=== PATIENT | female | born 1970 | race Caucasian/White ===

== ENCOUNTER 2017-06-11 10:48 | Emergency (ER) | payer MEDICAID, OTHER ==
[2017-06-11] MEDS ORDERED: HYDROmorphone INJ* 1 MG/ML CARPUJECT SYRINGE IV SLOW PU ONE (12:20)
[2017-06-11] MEDS ORDERED: Ondansetron INJ* 2 MG/ML VIAL IV ONE (12:20)
[2017-06-11] MEDS ORDERED: NS 0.9% 1000 ML* 1,000 ML IV ONE (12:20)
[2017-06-11] MEDS ORDERED: LORazepam INJ* 2 MG/ML 1 ML VIAL IV PUSH ONE (12:21)
[2017-06-11 13:06] LABS: Hematocrit 34 % (35-47); Hemoglobin 10.2 g/dl (12.0-16.0); Mean Corpuscular HGB Conc 31 g/dl (31-36); Mean Corpuscular Hemoglobin 21 pg (27-31); Mean Corpuscular Volume 67 fL (80-97); Mean Platelet Volume 10 um3 (7.4-10.4); Red Cell Distribution Width 20 % (10.5-15)
[2017-06-11 13:07] LABS: Add Diff/Slide Review? Slide Review Added; Comments Flag Yes
[2017-06-11 13:12] LABS: Urine Bacteria Absent (Absent); Urine Bilirubin Negative (Negative); Urine Glucose 2+(150 mg/dL) (Negative); Urine Nitrite Negative (Negative)
[2017-06-11 13:21] LABS: Albumin 4.2 g/dL (3.2-5.2); BUN/Creatinine Ratio 16.1 (8-20); Calcium 9.8 mg/dL (8.6-10.3); EGFR African American 89.8 (>60); EGFR Non-African American 69.8 (>60); Globulin 3.5 g/dL (2-4); Total Bilirubin 0.3 mg/dL (0.2-1.0); Total Protein 7.7 g/dL (6.4-8.9)
[2017-06-11 13:22] LABS: Potassium 5.1 mmol/L (3.5-5.0)
[2017-06-11 13:23] LABS: Add Path Review? YES; Microcytosis 2+
[2017-06-11] MEDS ORDERED: Iodixanol* (CONTRAST) 320 MG/ML 100 ML SDV IV ONE (13:27)
[2017-06-11] MEDS ORDERED: HYDROmorphone INJ* 2 MG/ML CARPUJECT SYRINGE IV ONE (14:00)
--- NOTE | 2017-06-11 14:29 | RAD ---
INDICATION: Tenderness at the RIGHT upper quadrant and RIGHT lower ribs and L3-L5 region post fall. COMPARISON: September 09, 2015 CT of the thoracic and lumbar spine. March 20, 2015 RIGHT upper quadrant ultrasound. TECHNIQUE: Multidetector CT images were obtained from the lung apices to the ischial tuberosities with 100 mL Visipaque 320 IV contrast. No oral contrast administered. Dedicated bone algorithm multiplanar reformatted images of the lumbar sacral spine. CHEST REPORT: Minimal LEFT greater than RIGHT basilar dependent subsegmental atelectasis. Negative for pleural effusion or pneumothorax. Negative for thoracic lymphadenopathy, cardiomegaly, pericardial effusion. Unremarkable normal diameter thoracic aorta. Negative for rib, thoracic spine, sternal, or visualized shoulder girdle fracture. Negative for soft tissue hematoma. CHEST IMPRESSION: No evidence for traumatic thoracic injury. ABDOMEN PELVIS REPORT: The liver, gallbladder, pancreas, and spleen are unremarkable. Negative for CT abnormality of the upper GI, small bowel, infra cecal appendix, or colon. Negative for ascites, free air, hernias. Normal adrenal glands. Unremarkable kidneys with symmetric pyelograms and nephrograms. Unremarkable nondilated ureters and largely decompressed urinary bladder limiting assessment. Anteverted uterus with 3.1 cm RIGHT uterine body fibroid. Unremarkable adnexal regions. Negative for lymphadenopathy. Negative for aneurysm of the abdominal aorta. Physiologic distention of the IVC. Negative for fracture of the lumbar sacral spine, pelvis, or visualized proximal femurs. Multilevel mild vertebral endplate osteophytosis at the lumbar sacral spine without significant disc space narrowing. Suggestion of minimal annular disc bulges at L2-L3, L3-L4, L4-L5, and L5-S1. No significant acquired central canal stenosis evident at any level. At L5-S1 on the LEFT degenerative spondylosis results in mild foraminal stenosis without change. Negative for soft tissue hematoma. ABDOMEN PELVIS IMPRESSION: 1. No abdominal pelvic visceral injury evident. 2. No lumbar sacral spine, pelvis, or visualized proximal femur fracture. 3. Negative for soft tissue hematoma.
--- NOTE | 2017-06-11 15:26 | ED ---
Renan Ibarra Abhishek, scribed for Bee Aguilar MD on 06/11/17 at 1203 . Back Pain - HPI Summary HPI Summary: This patient is a 47 year old F presenting to [facility] accompanied by back pain s/p fall with a chief complaint of back pain since 909. Pt states slipped on 3rd concrete step, landing on buttocks. Pt states lower back felt like a pop. The CC is described as mid back pain, radiating around right side and intermittent, sharp, piercing pain. The patient rates the pain 10/10 in severity. Symptoms aggravated by inspiration and movement. Symptoms alleviated by nothing. Pt states lower back felt like a pop. Patient reports right abd pain. Patient denies neck pain. - History of Current Complaint Chief Complaint: EDBackInjuryPain Stated Complaint: FALL Time Seen by Provider: 06/11/17 11:30 Hx Obtained From: Patient Onset/Duration: Sudden Onset - s/p fall, Still Present Onset/Duration: Started Hours Ago - 909 Timing: Constant, Lasting Hours - since 3 hr ago Back Pain Location: Radiates To - right side Severity Initially: Severe Severity Currently: Severe Pain Intensity: 10 Pain Scale Used: 0-10 Numeric Character: Sharp Aggravating Symptom(s): Movement, Other - inspiration Alleviating Symptom(s): Nothing Associated Signs And Symptoms: Positive: Abdominal Pain - right side pain - Allergies/Home Medications Allergies/Adverse Reactions: Allergies Allergy/AdvReac Type Severity Reaction Status Date / Time No Known Allergies Allergy Verified 09/09/15 19:58 PMH/Surg Hx/FS Hx/Imm Hx Endocrine/Hematology History: Reports: Hx Diabetes Cardiovascular History: Reports: Hx Hypertension Denies: Hx Pacemaker/ICD Respiratory History: Denies: Hx Asthma History: Denies: Hx Dialysis, Hx Renal Disease Sensory History: Denies: Hx Hearing Aid Psychiatric History: Denies: Hx Panic Disorder - Surgical History Surgery Procedure, Year, and Place: RT FOREARM FX 2006. RT CARPAL TUNNEL Infectious Disease History: Yes Infectious Disease History: Denies: Traveled Outside the [place] in Last 30 Days - Family History Known Family History: Positive: Other - CVA (mother's side) - Social History Lives: With Family Alcohol Use: Occasionally Substance Use Type: Reports: None Smoking Status (MU): Light Every Day Tobacco Smoker Review of Systems Constitutional: Negative Eyes: Negative ENT: Negative Cardiovascular: Negative Respiratory: Negative Positive: Abdominal Pain - right side Genitourinary: Negative Positive: Other - mid back pain radiating around right side (intermittent and sharp) Skin: Negative Neurological: Negative Psychological: Normal All Other Systems Reviewed And Are Negative: Yes Physical Exam - Summary Physical Exam Summary: General: Well appearing, no pain distress Skin: Warm, Skin Color Reflects Adequate Perfusion, Dry Eyes: EOMI, MARILYN ENT: Pharynx normal, TMs normal Neck: Supple, nontender Respiratory: CTA, breath sounds present, no rhonchi, no wheezes, no rales Cardiovascular: RRR, no murmur, no rub, no gallop Abdomen: Soft, nontender, Non-distended, no guarding, no rebound Bowel: Present Musculoskeletal: JHONY, Tender in the L3/L4 Mid axillary tenderness through ribs 10-12 Great toe dorsal flection Great hip flection Neuro: Sensory/motor intact, A&Ox3, CN intact 2-12 Psych: Affect/mood appropriate Triage Information Reviewed: Yes Vital Signs On Initial Exam: Initial Vitals Temp Pulse Resp BP Pulse Ox 98.1 F 74 19 129/67 97 06/11/17 10:54 06/11/17 10:54 06/11/17 10:54 06/11/17 10:54 06/11/17 10:54 Vital Signs Reviewed: Yes - Valente Coma Scale Coma Scale Total: 15 Diagnostics - Vital Signs Vital Signs Temp Pulse Resp BP Pulse Ox 06/11/17 11:00 76 119/75 98 06/11/17 10:55 79 98 06/11/17 10:54 98.1 F 74 19 129/67 97 - Laboratory Lab Results: Lab Results 06/11/17 06/11/17 06/11/17 Range/Units 12:50 12:50 12:50 WBC 10.0 (3.5-10.8) 10^3/ul RBC 5.00 (4.0-5.4) 10^6/ul Hgb 10.2 L (12.0-16.0) g/dl Hct 34 L (35-47) % MCV 67 L (80-97) fL MCH 21 L (27-31) pg MCHC 31 (31-36) g/dl RDW 20 H (10.5-15) % Plt Count 207 (150-450) 10^3/ul MPV 10 (7.4-10.4) um3 Neut % (Auto) 60.8 (38-83) % Lymph % (Auto) 24.4 L (25-47) % [place] % (Auto) 5.1 (1-9) % Eos % (Auto) 8.8 H (0-6) % Baso % (Auto) 0.9 (0-2) % Absolute Neuts (auto) 6.1 (1.5-7.7) 10^3/ul Absolute Lymphs (auto) 2.4 (1.0-4.8) 10^3/ul Absolute Monos (auto) 0.5 (0-0.8) 10^3/ul Absolute Eos (auto) 0.9 H (0-0.6) 10^3/ul Absolute Basos (auto) 0.1 (0-0.2) 10^3/ul Absolute Nucleated RBC 0 10^3/ul Nucleated RBC % 0 Normal RBC Morphology Not Reportable Microcytosis 2+ Hem Pathologist Commnt Pending Sodium 134 (133-145) mmol/L Potassium 5.1 H (3.5-5.0) mmol/L Chloride 101 (101-111) mmol/L Carbon Dioxide 26 (22-32) mmol/L Anion Gap 7 (2-11) mmol/L BUN 14 (6-24) mg/dL Creatinine 0.87 (0.51-0.95) mg/dL Est GFR ( Amer) 89.8 (>60) Est GFR (Non-Af Amer) 69.8 (>60) BUN/Creatinine Ratio 16.1 (8-20) Glucose 257 H (70-100) mg/dL Calcium 9.8 (8.6-10.3) mg/dL Total Bilirubin 0.30 (0.2-1.0) mg/dL AST 9 L (13-39) U/L ALT 12 (7-52) U/L Alkaline Phosphatase 69 (34-104) U/L Total Protein 7.7 (6.4-8.9) g/dL Albumin 4.2 (3.2-5.2) g/dL Globulin 3.5 (2-4) g/dL Albumin/Globulin Ratio 1.2 (1-3) Urine Color Yellow Urine Appearance Cloudy Urine pH 5.0 (5-9) Ur Specific [place] 1.025 (1.010-1.030) Urine Protein 1+(30 mg/dl) H (Negative) Urine Ketones Negative (Negative) Urine Blood Negative (Negative) Urine Nitrate Negative (Negative) Urine Bilirubin Negative (Negative) Urine Urobilinogen Negative (Negative) Ur Leukocyte Esterase Negative (Negative) Urine WBC (Auto) Trace(0-5/hpf) (Absent) Urine RBC (Auto) Trace(0-2/hpf) (Absent) Ur Squamous Epith Cells Present H (Absent) Urine Bacteria Absent (Absent) Hyaline Casts Present H (Absent) Urine Glucose 2+(150 mg/dl) H (Negative) Result Diagrams: 06/11/17 12:50 06/11/17 12:50 Lab Statement: Any lab studies that have been ordered have been reviewed, and results considered in the medical decision making process. - CT Chest/abd/pelvis CT CT Interpretation Completed By: Radiologist - CT Chest reveals No evidence for traumatic thoracic injury. CT abd/pelvis reveals 1. No abdominal pelvic visceral injury evident. 2. No lumbar sacral spine, pelvis, or visualized proximal femur fracture. 3. Negative for soft tissue hematoma. CT spine CT Interpretation Completed By: Radiologist - CT Spine reveals No evidence for traumatic thoracic injury. CT abd/pelvis reveals 1. No abdominal pelvic visceral injury evident. 2. No lumbar sacral spine, pelvis, or visualized proximal femur fracture. 3. Negative for soft tissue hematoma. ED physician has reviewed this radiology report and agrees. Back Pain Course/Dx - Course Course Of Treatment: 47 yo female s/p fall with left paraspinal lumbar pain l3- l5 and right rib pain. ct's neg pts pain controlled here, she is neurovascularly correct - Diagnoses Provider Diagnoses: Rib pain, Lumbar strain Discharge - Discharge Plan Condition: Stable Disposition: HOME Prescriptions: Cyclobenzaprine TAB* [Flexeril 10 MG TAB*] 10 mg PO TID PRN #30 tab PRN Reason: Spasms oxyCODONE/Acetamin 5/325 MG* [Percocet 5/325 TAB*] 1 tab PO Q4H PRN #18 tab MDD 6 PRN Reason: Pain The documentation as recorded by the Renan abad Abhishek accurately reflects the service I personally performed and the decisions made by , Bee Aguilar MD.
[2017-06-11 15:37] VITALS: BP 108/52
== END 2017-06-11 15:38 | disposition home or self-care (01) ==
LOC: ED 10:48
DX: S39.012A Strain of muscle, fascia and tendon of lower back, initial encounter (principal); R07.81 Pleurodynia; W19.XXXA Unspecified fall, initial encounter; Y93.9 Activity, unspecified; Y92.9 Unspecified place or not applicable
CPT/HCPCS: 36415; 71260; 72131; 74177; 80053; 81003; 81015; 85025; 85060; 96374; 96375; 99282; J1170; J2060; J2405; Q9967

== ENCOUNTER 2017-08-18 18:43 | Emergency (ER) | payer MEDICAID ==
[2017-08-18] MEDS ORDERED: NS 0.9% 1000 ML* 1,000 ML IV ONE (20:04)
--- NOTE | 2017-08-18 20:32 | RAD ---
INDICATION: Syncope. COMPARISON: There are no prior studies available for comparison. TECHNIQUE: A portable view of the chest was obtained. FINDINGS: Cardiac and mediastinal contours appear to be within normal limits. The lungs are clear. No pleural effusion is seen. IMPRESSION: NO EVIDENCE FOR ACUTE DISEASE.
--- NOTE | 2017-08-18 20:46 | RAD ---
INDICATION: Syncope, headache on Coumadin. COMPARISON: Comparison is made with a prior CT of the brain from 2015. TECHNIQUE: Contiguous axial sections of the brain were obtained from the skull base to the vertex without contrast. FINDINGS: There are 2 areas of encephalomalacia. 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 No other focal abnormality or mass effect is seen. There is no evidence for hemorrhage. No significant focal osseous abnormality is seen. The visualized portion of the paranasal sinuses and mastoid air cells appear clear. IMPRESSION: 1. NO EVIDENCE FOR ACUTE INTRACRANIAL ABNORMALITY. 2. 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
[2017-08-18] MEDS ORDERED: levETIRAcetam TAB* 500 MG PO ONE (20:58)
[2017-08-18 21:12] LABS: INR 0.94 (0.77-1.02)
[2017-08-18 21:16] LABS: EGFR Non-African American 79.2 (>60)
[2017-08-18 21:31] LABS: Urine Appearance Cloudy; Urine Blood 3+ (Negative); Urine Color Yellow; Urine Ketones Negative (Negative); Urine Protein 1+(30 mg/dL) (Negative); Urine Specific Gravity 1.018 (1.010-1.030); Urine Urobilinogen Negative (Negative)
[2017-08-18] MEDS ORDERED: Magnesium Sulfate 2 GM IV* 2 GM/50 ML BAG IVPB ONE (21:42)
[2017-08-18] MEDS ORDERED: Sulfamethox/Trimethoprim DS 800/160* TAB PO ONE (21:43)
[2017-08-18 23:15] LABS: ABS Basophils 0 10^3/ul (0-0.2); ABS Eosinophils 0.1 10^3/ul (0-0.6); ABS Lymphocytes 1.7 10^3/ul (1.0-4.8); ABS Monocytes 0.4 10^3/ul (0-0.8); ABS Neutrophils 4.8 10^3/ul (1.5-7.7); ABS Nucleated RBC 0 10^3/ul; Eosinophil % 1.5 % (0-6); Hematocrit 32 % (35-47); Hemoglobin 9.9 g/dl (12.0-16.0); Lymphocyte % 24.4 % (25-47); Mean Corpuscular HGB Conc 31 g/dl (31-36); Mean Corpuscular Hemoglobin 21 pg (27-31); Mean Platelet Volume 10 um3 (7.4-10.4); Nucleated Red Blood Cells % 0; Platelet Count 186 10^3/ul (150-450); Red Blood Count 4.73 10^6/ul (4.0-5.4); Red Cell Distribution Width 20 % (10.5-15); White Blood Count 7.1 10^3/ul (3.5-10.8)
[2017-08-18 23:17] LABS: Mean Corpuscular Volume 68 fL (80-97)
[2017-08-19 00:08] VITALS: BP 123/60
--- NOTE | 2017-08-19 00:14 | ED ---
Debbie Ibarra Gabriel scribmariana for Wayne Frank on 08/18/17 at 2004 . Syncope/Near Syncope - HPI Summary HPI Summary: This patient is a 47 year old F BIBA to [facility] accompanied by her family with a chief complaint of a syncopal episode that occurred [employer]. The patient rates the pain 10/10 in severity. Symptoms alleviated by spontaneous resolution. Patient reports HUGO and neck pain. Patients family denies mouth frothing. Patients family reports that she was sitting and talking to them when she had a LOC in which she did not close her eyes. She feel and hit her the posterior aspect of her head, was unconscious for 2 minutes, and awoke confused. They also took her BP after and it was elevated. Patient has a history of seizures and a blood clot in her neck. She states that she has been taking her medication as directed. - History Of Current Complaint Chief Complaint: EDDiabeticProb Time Seen by Provider: 08/18/17 19:49 Hx Obtained From: Patient, Family/Supervisor [employer] Onset/Duration: Sudden Onset, Resolved Timing: Intermittent Episode Lasting - 2 minutes Context: Witnessed, Loss Of Consciousness Activity At Onset: At Rest Associated Head Trauma: Yes Alleviating Factor(s): Spontaneous Resolution - Allergies/Home Medications Allergies/Adverse Reactions: Allergies Allergy/AdvReac Type Severity Reaction Status Date / Time No Known Allergies Allergy Verified 09/09/15 19:58 PMH/Surg Hx/FS Hx/Imm Hx Endocrine/Hematology History: Reports: Hx Blood Disorders - in neck , Hx Diabetes Cardiovascular History: Reports: Hx Hypertension Denies: Hx Pacemaker/ICD Respiratory History: Denies: Hx Asthma History: Denies: Hx Dialysis, Hx Renal Disease Sensory History: Denies: Hx Hearing Aid Neurological History: Reports: Hx Seizures Psychiatric History: Denies: Hx Panic Disorder - Surgical History Surgery Procedure, Year, and Place: RT FOREARM FX 2007. RT CARPAL TUNNEL Infectious Disease History: No Infectious Disease History: Denies: Traveled Outside the [place] in Last 30 Days - Family History Known Family History: Positive: Other - CVA (mother's side) - Social History Alcohol Use: Occasionally Substance Use Type: Reports: None Smoking Status (MU): Light Every Day Tobacco Smoker Review of Systems ENT: Negative - mouth frothing Positive: Other - elevated BP Positive: Other - neck pain Positive: Headache, Syncope - with LOC All Other Systems Reviewed And Are Negative: Yes Physical Exam - Summary Physical Exam Summary: Appearance: Well appearing, no pain distress Skin: warm, dry, reflects adequate perfusion Head/face: normal Eyes: EOMI, MARILYN ENT: normal Neck: supple, non-tender Respiratory: CTA, breath sounds present Cardiovascular: RRR, pulses symmetrical Abdomen: non-tender, soft Bowel: present Musculoskeletal: normal, strength/ROM intact Neuro: normal, sensory motor intact, A&Ox3 Triage Information Reviewed: Yes Vital Signs On Initial Exam: Initial Vitals Temp Pulse Resp BP Pulse Ox 100.0 F 68 18 154/69 98 08/18/17 19:48 08/18/17 19:48 08/18/17 19:48 08/18/17 19:48 08/18/17 19:48 Vital Signs Reviewed: Yes Diagnostics - Vital Signs Vital Signs Temp Pulse Resp BP Pulse Ox 08/18/17 19:48 100.0 F 68 18 154/69 98 - Laboratory Lab Results: Lab Results 08/18/17 08/18/17 08/18/17 Range/Units 19:53 20:48 20:48 WBC (3.5-10.8) 10^3/ul RBC (4.0-5.4) 10^6/ul Hgb (12.0-16.0) g/dl Hct (35-47) % MCV (80-97) fL MCH (27-31) pg MCHC (31-36) g/dl RDW (10.5-15) % Plt Count (150-450) 10^3/ul MPV (7.4-10.4) um3 Neut % (Auto) (38-83) % Lymph % (Auto) (25-47) % [place] % (Auto) (1-9) % Eos % (Auto) (0-6) % Baso % (Auto) (0-2) % Absolute Neuts (auto) (1.5-7.7) 10^3/ul Absolute Lymphs (auto) (1.0-4.8) 10^3/ul Absolute Monos (auto) (0-0.8) 10^3/ul Absolute Eos (auto) (0-0.6) 10^3/ul Absolute Basos (auto) (0-0.2) 10^3/ul Absolute Nucleated RBC 10^3/ul Nucleated RBC % INR (Anticoag Therapy) 0.94 (0.77-1.02) APTT 29.4 (26.0-36.3) seconds Sodium 128 L (133-145) mmol/L Potassium 4.3 (3.5-5.0) mmol/L Chloride 95 L (101-111) mmol/L Carbon Dioxide 25 (22-32) mmol/L Anion Gap 8 (2-11) mmol/L BUN 14 (6-24) mg/dL Creatinine 0.78 (0.51-0.95) mg/dL Est GFR ( Amer) 101.8 (>60) Est GFR (Non-Af Amer) 79.2 (>60) BUN/Creatinine Ratio 17.9 (8-20) Glucose 301 H (70-100) mg/dL POC Glucose (mg/dL) 349 H (70-100) mg/dL Calcium 9.6 (8.6-10.3) mg/dL Magnesium 1.6 L (1.9-2.7) mg/dL Total Bilirubin 0.30 (0.2-1.0) mg/dL AST 11 L (13-39) U/L ALT 15 (7-52) U/L Alkaline Phosphatase 75 (34-104) U/L Troponin I 0.01 (<0.04) ng/mL Total Protein 7.5 (6.4-8.9) g/dL Albumin 4.0 (3.2-5.2) g/dL Globulin 3.5 (2-4) g/dL Albumin/Globulin Ratio 1.1 (1-3) Urine Color Urine Appearance Urine pH (5-9) Ur Specific [place] (1.010-1.030) Urine Protein (Negative) Urine Ketones (Negative) Urine Blood (Negative) Urine Nitrate (Negative) Urine Bilirubin (Negative) Urine Urobilinogen (Negative) Ur Leukocyte Esterase (Negative) Urine WBC (Auto) (Absent) Urine RBC (Auto) (Absent) Ur Squamous Epith Cells (Absent) Urine Bacteria (Absent) Urine Glucose (Negative) 08/18/17 08/18/17 Range/Units 21:12 23:04 WBC 7.1 (3.5-10.8) 10^3/ul RBC 4.73 (4.0-5.4) 10^6/ul Hgb 9.9 L (12.0-16.0) g/dl Hct 32 L (35-47) % MCV 68 L (80-97) fL MCH 21 L (27-31) pg MCHC 31 (31-36) g/dl RDW 20 H (10.5-15) % Plt Count 186 (150-450) 10^3/ul MPV 10 (7.4-10.4) um3 Neut % (Auto) 68.1 (38-83) % Lymph % (Auto) 24.4 L (25-47) % [place] % (Auto) 5.5 (1-9) % Eos % (Auto) 1.5 (0-6) % Baso % (Auto) 0.5 (0-2) % Absolute Neuts (auto) 4.8 (1.5-7.7) 10^3/ul Absolute Lymphs (auto) 1.7 (1.0-4.8) 10^3/ul Absolute Monos (auto) 0.4 (0-0.8) 10^3/ul Absolute Eos (auto) 0.1 (0-0.6) 10^3/ul Absolute Basos (auto) 0 (0-0.2) 10^3/ul Absolute Nucleated RBC 0 10^3/ul Nucleated RBC % 0 INR (Anticoag Therapy) (0.77-1.02) APTT (26.0-36.3) seconds Sodium (133-145) mmol/L Potassium (3.5-5.0) mmol/L Chloride (101-111) mmol/L Carbon Dioxide (22-32) mmol/L Anion Gap (2-11) mmol/L BUN (6-24) mg/dL Creatinine (0.51-0.95) mg/dL Est GFR ( Amer) (>60) Est GFR (Non-Af Amer) (>60) BUN/Creatinine Ratio (8-20) Glucose (70-100) mg/dL POC Glucose (mg/dL) (70-100) mg/dL Calcium (8.6-10.3) mg/dL Magnesium (1.9-2.7) mg/dL Total Bilirubin (0.2-1.0) mg/dL AST (13-39) U/L ALT (7-52) U/L Alkaline Phosphatase (34-104) U/L Troponin I (<0.04) ng/mL Total Protein (6.4-8.9) g/dL Albumin (3.2-5.2) g/dL Globulin (2-4) g/dL Albumin/Globulin Ratio (1-3) Urine Color Yellow Urine Appearance Cloudy Urine pH 5.0 (5-9) Ur Specific [place] 1.018 (1.010-1.030) Urine Protein 1+(30 mg/dl) H (Negative) Urine Ketones Negative (Negative) Urine Blood 3+ H (Negative) Urine Nitrate Positive H (Negative) Urine Bilirubin Negative (Negative) Urine Urobilinogen Negative (Negative) Ur Leukocyte Esterase Negative (Negative) Urine WBC (Auto) 1+(6-10/hpf) H (Absent) Urine RBC (Auto) 3+(>10/hpf) H (Absent) Ur Squamous Epith Cells Present H (Absent) Urine Bacteria 1+ H (Absent) Urine Glucose 3+(>=500 mg/dl) H (Negative) Result Diagrams: 08/18/17 23:04 08/18/17 20:48 Lab Statement: Any lab studies that have been ordered have been reviewed, and results considered in the medical decision making process. - Radiology CXR Radiology Interpretation Completed By: Radiologist - NO EVIDENCE FOR ACUTE DISEASE. ED physician has reviewed this radiology report. - CT CT head CT Interpretation Completed By: Radiologist - 1. NO EVIDENCE FOR ACUTE INTRACRANIAL ABNORMALITY. 2. 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 ED physician has reviewed this radiology report. - EKG 20:15 Cardiac Rate: NL EKG Rhythm: Sinus Rhythm - at 92 BPM EKG Interpretation: No acute changes Course/Dx Assessment/Plan: This patient is a 47 year old F BIBA to [facility] accompanied by her family with a chief complaint of a syncopal episode that occurred [employer]. Patient has a history of seizures and a blood clot in her neck. She states that she has been taking her medication as directed. An EKG reveals NSR. CXR reveals, per radiologist, NO EVIDENCE FOR ACUTE DISEASE. Brain CT reveals, per radiologist, 1. NO EVIDENCE FOR ACUTE INTRACRANIAL ABNORMALITY. 2. 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 Blood work and UA was obtained. In the ED course the patient was given IV fluids, keppra, Magnesium sulfate, and bactrim. Patient will be discharged with prescription for Bactrim and follow up from her PCP in 3 days. Dx of UTI and recurrent seizures. The patient is agreeable with this plan. - Diagnoses Differential Diagnosis/HQI/PQRI: Positive: Seizure, Vasovagal Episode, Other - syncope/ Provider Diagnoses: UTI (urinary tract infection), Recurrent seizures Discharge - Discharge Plan Condition: Stable Disposition: HOME Prescriptions: Sulfamethox/Trimethoprim DS* [Bactrim DS 800/160 TAB*] 1 tab PO BID #10 tab Patient Education Materials: Sulfamethoxazole/Trimethoprim (By mouth), Urinary Tract Infection in Women (ED) Referrals: Nagi Medina MD [Primary Care Provider] - 3 Days Additional Instructions: Return to the emergency room for any new or worsening symptoms. The documentation as recorded by the Debbie abad Gabriel accurately reflects the service I personally performed and the decisions made by Monika finch Emmanuel.
--- NOTE | 2017-08-20 09:13 | PN ---
Progress Note - Progress Note Date of Service: 08/18/17 Note: e. coli >100,000 grew on preliminary urine culture results. placed on bactrim at d/c. will wait for final culture sensitivity. no changes needed at this time.
--- NOTE | 2017-08-21 08:59 | PN ---
Progress Note - Progress Note Date of Service: 09/18/17 Note: Urine culture grew E. Coli Patient placed on Bactrim prior to discharge Bactrim is sensitive to organism. Nothing further at this time. Abby Ferreira PA-C
== END 2017-08-19 00:06 | disposition home or self-care (01) ==
LOC: ED 18:43
DX: N39.0 Urinary tract infection, site not specified (principal); B96.20 Unspecified Escherichia coli [E. coli] as the cause of diseases classified elsewhere; R56.9 Unspecified convulsions; G93.89 Other specified disorders of brain; F17.200 Nicotine dependence, unspecified, uncomplicated; Z86.718 Personal history of other venous thrombosis and embolism
CPT/HCPCS: 36415; 70450; 71010; 80053; 81003; 81015; 83735; 84484; 85025; 85610; 85730; 87077; 87086; 87186; 93005; 96374; 99283; A9270-GY; J3475

== ENCOUNTER 2018-08-06 08:24 | Inpatient (IN) | payer OTHER ==
[2018-08-06] MEDS ORDERED: Ondansetron INJ* 2 MG/ML VIAL IV ONE ×2 (08:46→11:21)
[2018-08-06] MEDS ORDERED: NS 0.9% 1000 ML* 1,000 ML IV ONE ×3 (09:00→12:12)
--- NOTE | 2018-08-06 09:08 | ED ---
GI/ HPI - HPI Summary HPI Summary: Patient is a 48 y/o F presenting to ED via ambulance with complaints of N/V onsetting this morning. In the room, she states, "I can't feel my body". EMS gave 4 mg Zofran. PMHx of diabetes. EMS reported that patient denies abdominal pain and also notes that patient was alert and ambulatory until arrival at ED. In the room, patient is not answering questions and is uncooperative, poor historian, level 5 caveat. On triage, pain is denied, nothing is noted to aggravate/alleviate Sx. Home medications and allergies are reviewed. - History of Current Complaint Chief Complaint: EDGeneral Time Seen by Provider: 08/06/18 08:43 Stated Complaint: NAUSEOUS/VOMITING/GENERAL Hx Obtained From: Patient, EMS Hx From Patient Unobtainable Due To: Other - In the room, patient is not answering questions and is uncooperative, poor historian, level 5 caveat. Onset/Duration: Started Hours Ago - this morning, Still Present Timing: Lasting Hours - this morning Current Severity: None Pain Intensity: 0 Associated Signs and Symptoms: Positive: Nausea, Vomiting, Other: - "I can't feel my body.". Negative: Abdominal Pain Aggravating Factor(s): Nothing Alleviating Factor(s): Nothing - Allergy/Home Medications Allergies/Adverse Reactions: Allergies Allergy/AdvReac Type Severity Reaction Status Date / Time No Known Allergies Allergy Verified 08/06/18 08:51 Home Medications: Home Medications Aspirin 81 mg PO DAILY 08/06/18 [History Confirmed 08/06/18] Atorvastatin* [Lipitor*] 80 mg PO DAILY 08/06/18 [History Confirmed 08/06/18] Cimetidine [Cimetidine 200] 200 mg PO DAILY 08/06/18 [History Confirmed 08/06/18 ] Lisinopril 10 mg PO DAILY 08/06/18 [History Confirmed 08/06/18] Omeprazole 40 mg PO DAILY 08/06/18 [History Confirmed 08/06/18] glipiZIDE [Glipizide] 10 mg PO BID 08/06/18 [History Confirmed 08/06/18] levETIRAcetam [Levetiracetam] 500 mg PO BID 08/06/18 [History Confirmed 08/06/18 ] metFORMIN* [Glucophage 1000 MG TAB *] 1,000 mg PO BID 08/06/18 [History Confirmed 08/06/18] PMH/Surg Hx/FS Hx/Imm Hx Endocrine/Hematology History: Reports: Hx Blood Disorders - in neck , Hx Diabetes Cardiovascular History: Reports: Hx Hypertension Denies: Hx Pacemaker/ICD Respiratory History: Denies: Hx Asthma History: Denies: Hx Dialysis, Hx Renal Disease Sensory History: Denies: Hx Hearing Aid Neurological History: Reports: Hx Seizures Psychiatric History: Denies: Hx Panic Disorder - Surgical History Surgery Procedure, Year, and Place: RT FOREARM FX 2006. RT CARPAL TUNNEL - Immunization History Date of Tetanus Vaccine: unk Date of Influenza Vaccine: unk Infectious Disease History: No Infectious Disease History: Denies: Traveled Outside the [place] in Last 30 Days - Family History Known Family History: Positive: Other - CVA (mother's side) - Social History Alcohol Use: Occasionally Substance Use Type: Reports: None Smoking Status (MU): Former Smoker Review of Systems - ROS Summary Review of Systems Summary: patient is not answering questions and is uncooperative, poor historian, level 5 caveat. Positive: Vomiting, Nausea. Negative: Abdominal Pain Neurological: Other - "I can't feel my body" All Other Systems Reviewed And Are Negative: No - Comments Additional Review of Systems Comments: patient is not answering questions and is uncooperative, poor historian, level 5 caveat. Physical Exam - Summary Physical Exam Summary: VITAL SIGNS: Reviewed. GENERAL: Patient is a well-developed and obese female who is lying comfortable in the stretcher. Patient is not in any acute respiratory distress. HEAD AND FACE: No signs of trauma. No ecchymosis, hematomas or skull depressions. No sinus tenderness. EYES: PERRLA, EOMI x 2, No injected conjunctiva, no nystagmus. EARS: Hearing grossly intact. Ear canals and tympanic membranes are within normal limits. MOUTH: Oropharynx within normal limits. NECK: Supple, trachea is midline, no adenopathy, no JVD, no carotid bruit, no c- spine tenderness, neck with full ROM. CHEST: Symmetric, no tenderness at palpation LUNGS: Clear to auscultation bilaterally. No wheezing or crackles. CVS: Regular rate and rhythm, S1 and S2 present, no murmurs or gallops appreciated. ABDOMEN: Soft, non-tender. No signs of distention. No rebound no guarding, and no masses palpated. Bowel sounds are normal. EXTREMITIES: FROM in all major joints, no edema, no cyanosis or clubbing. NEURO: Alert and oriented x 3. No acute neurological deficits. Speech is normal but patient is not answering questions. level 5 caveat. GCS 15. SKIN: Dry and warm Triage Information Reviewed: Yes Vital Signs On Initial Exam: Initial Vitals Pulse Pulse Ox 55 97 08/06/18 08:30 08/06/18 08:30 Vital Signs Reviewed: Yes Diagnostics - Vital Signs Vital Signs Temp Pulse Resp BP Pulse Ox 08/06/18 08:44 96.1 F 79 22 180/84 99 08/06/18 08:34 61 22 180/84 96 08/06/18 08:30 55 97 - Laboratory Result Diagrams: 08/06/18 09:13 08/06/18 09:14 Lab Statement: Any lab studies that have been ordered have been reviewed, and results considered in the medical decision making process. - Radiology abdomen x-ray Radiology Interpretation Completed By: Radiologist Summary of Radiographic Findings: IMPRESSION: NONOBSTRUCTIVE BOWEL GAS PATTERN. LARGE AMOUNT OF STOOL THROUGHOUT THE COLON. THIS REPORT WAS REVIEWED BY ED PHYSICIAN. - CT brain ct CT Interpretation Completed By: Radiologist Summary of CT Findings: IMPRESSION: 1. NO ACUTE INTRACRANIAL PATHOLOGY. 2. STABLE ENCEPHALOMALACIA CONSISTENT WITH REMOTE INFARCTS. 3. MODERATE SINUS MUCOSAL INFLAMMATORY DISEASE, WITH AN AIR-FLUID LEVEL IN THE RIGHT. MAXILLARY SINUS . IN THE CORRECT CLINICAL SETTING, THIS MAY REPRESENT ACUTE SINUSITIS. THIS REPORT WAS REVIEWED BY ED PHYSICIAN. - EKG 0913 Cardiac Rate: Bradycardia - rate of 51 bpm EKG Rhythm: Sinus Bradycardia ST Segment: Normal EKG Comparison: No Significant Change - 08/18/17 EKG comparison Summary of EKG Findings: EKG showed sinus bardycardia with rate of 51 bpm, no ST elevations, no significant changes compared to 08/18/17 EKG. Re-Evaluation - Re-Evaluation First Eval Re-Evaluation Time: 10:57 Comment: Nurse reports that BG is now 403. Second Eval Re-Evaluation Time: 11:17 Comment: Nurse reports BG is now 405 on finger stick. GIGU Course/Dx - Course Assessment/Plan: Patient is a 48 y/o F presenting to ED via ambulance with complaints of N/V onsetting this morning. In the room, she states, "I can't feel my body". EMS gave 4 mg Zofran. PMHx of diabetes. EMS reported that patient denies abdominal pain and also notes that patient was alert and ambulatory until arrival at ED. In the room, patient is not answering questions and is uncooperative, poor historian, level 5 caveat. Blood work without any significant abnormality except for WBCs of 11, sodium 133, carbon dioxide is 21 , glucose 409, CRP of 9.22, magnesium of 1.5 and urinalysis negative for UTI. The patient was given Zofran for nausea and vomiting, IV fluids and insulin for dehydration and hyperglycemia. I believe the most of her symptoms are secondary to gastroparesis. The patient reports that she is unable to move the lower extremities. However, she did move them. I did perform a head CT which is described as above. There is no acute intracranial findings. The patient continues to have nausea unable to tolerate by mouth. I discussed my physical exam and findings with Dr. Rodas from the hospital services who accepted the patient for admission. The patient continues to be hemodynamically stable alert and oriented 3. - Diagnoses Provider Diagnoses: Nausea and vomiting, Gastroparesis, Hyperglycemia - Physician Notifications Discussed Care Of Patient With: Anel Rodas Time Discussed With Above Provider: 11:34 Instructed by Provider To: Other - Patient's case was discussed with Dr. Rodas at 1134, Dr. Rodas accepts patient for admission. Discharge - Sign-Out/Discharge Documenting (check all that apply): Patient Departure - admit All imaging exams completed and their final reports reviewed: Yes - Discharge Plan Condition: Good Disposition: ADMITTED TO [facility] - Billing Disposition and Condition Condition: GOOD Disposition: Admitted to [facility] - Attestation Statements Document Initiated by Bonnieibe: Yes Documenting Scribe: GEORGE GUDINO Provider For Whom Katie is Documenting (Include Credential): HAROLDO ERIC MD Scribe Attestation: GEORGE Ibarra , scribed for HAROLDO ERIC MD on 08/06/18 at 1806. Scribe Documentation Reviewed: Yes Provider Attestation: The documentation as recorded by the GEORGE abad accurately reflects the service I personally performed and the decisions made by me, HAROLDO ERIC MD Status of Scribe Document: Viewed
[2018-08-06 09:21] LABS: ABS Basophils 0.1 10^3/ul (0-0.2); ABS Eosinophils 0.3 10^3/ul (0-0.6); ABS Lymphocytes 3.8 10^3/ul (1.0-4.8); ABS Monocytes 0.4 10^3/ul (0-0.8); ABS Neutrophils 6.4 10^3/ul (1.5-7.7); ABS Nucleated RBC 0 10^3/ul; Eosinophil % 2.7 %; Hematocrit 42 % (35-47); Hemoglobin 13.5 g/dl (12.0-16.0); Lymphocyte % 34.6 %; Mean Corpuscular HGB Conc 32 g/dl (31-36); Mean Corpuscular Hemoglobin 27 pg (27-31); Mean Corpuscular Volume 85 fL (80-97); Mean Platelet Volume 10.1 fL (7.4-10.4); Nucleated Red Blood Cells % 0; Platelet Count 166 10^3/ul (150-450); Red Blood Count 4.95 10^6/ul (4.00-5.40); Red Cell Distribution Width 15 % (10.5-15)
[2018-08-06 09:38] LABS: Albumin 3.8 g/dL (3.2-5.2); Albumin/Globulin Ratio 1.2 (1-3); BUN/Creatinine Ratio 28.6 (8-20); C Reactive Protein 9.22 mg/L (<8.01); Calcium 9.5 mg/dL (8.6-10.3); EGFR Non-African American 72.4 (>60); Globulin 3.3 g/dL (2-4); Magnesium 1.5 mg/dL (1.9-2.7); Potassium 3.9 mmol/L (3.5-5.0); Total Bilirubin 0.3 mg/dL (0.2-1.0); Total Protein 7.1 g/dL (6.4-8.9)
[2018-08-06] MEDS ORDERED: Insulin REGULAR(*) 1 UNITS UNIT IV PUSH ONE ×2 (09:48→11:17)
[2018-08-06 10:57] LABS: Urine Appearance Clear; Urine Bilirubin Negative (Negative); Urine Blood Negative (Negative); Urine Color Yellow; Urine Glucose 3+(>=500 mg/dL) (Negative); Urine Ketones Trace (Negative); Urine Nitrite Negative (Negative); Urine Protein Negative (Negative); Urine Specific Gravity 1.025 (1.010-1.030); Urine Urobilinogen Negative (Negative)
[2018-08-06] MEDS ORDERED: Magnesium Sulfate 1 GM IV* 1 GM/100 ML BAG IV ONE ×2 (10:57→12:15)
[2018-08-06] MEDS ORDERED: Dextrose 50% Syringe 50 ML* 25 GM/50 ML SYRINGE IV PUSH PRN (12:12)
[2018-08-06] MEDS ORDERED: Metoclopramide IV* 5 MG/ML 2 ML VIAL IV PRN (12:14)
[2018-08-06] MEDS ORDERED: Ondansetron INJ* 2 MG/ML VIAL IV PRN (13:00)
[2018-08-06] MEDS: NS 0.9% 1000 ML* 1,000 ML IV SCH (13:20)
[2018-08-06] MEDS: Heparin VIAL(*) 5000 UNITS/ML VIAL (FIVE THOUSAND) SUBCUT SCH ×2 (14:56→20:14)
[2018-08-06] MEDS: Insulin LISPRO* 1 UNITS UNIT SUBCUT SCH ×3 (14:57→20:14)
--- NOTE | 2018-08-06 16:46 | HP ---
CC: Dr. Rodas; Dr. Medina * ADMISSION HISTORY AND PHYSICAL: DATE OF ADMISSION: 08/06/18 ATTENDING PHYSICIAN: Dr. Anel Rodas.* (DICTATED BY CHEMA GROVER NP) PRIMARY CARE PROVIDER: Dr. Nagi Medina. CHIEF COMPLAINT: Nausea, vomiting, and hyperglycemia. HISTORY OF PRESENT ILLNESS: This is a 48-year-old female patient with known history of diabetes mellitus, gastroparesis, hypertension, and obesity, that presented to the emergency department with a complaint of intractable nausea and vomiting this morning. The patient states she was unable to take in any water and felt very weak. She came to the emergency department for evaluation. Upon exam in the ED, she does have a mildly elevated white count and low sodium. Glucose was 409 by [id number] with EMS services. She had received 10 units of insulin. Her sugar remained elevated in the 400 range. She was also noted to have a low magnesium and a CRP that was elevated at 9.22. For these reasons, we were asked to evaluate the patient for admission. PAST MEDICAL HISTORY: As stated above, significant for non-insulin dependent diabetes mellitus type 2, hypertension, obesity, and diabetic gastroparesis. The patient does have history of seizure disorder, but no seizures reported as a part of her chief complaint. PAST SURGICAL HISTORY: Significant for bilateral carpal tunnel release. FAMILY HISTORY: Noncontributory. SOCIAL HISTORY: The patient does not smoke. Drinks alcohol rarely. Denies any illicit drug use. HEALTHCARE PROXY: The patient states her adult children would be her proxies. She did not name one individual. CODE STATUS: She is a full code. REVIEW OF SYSTEMS: A 10-point review of systems is negative, except as noted in the HPI above. PHYSICAL EXAMINATION GENERAL: The patient is awake, alert, in mild distress. VITAL SIGNS: Blood pressure 136/72, heart rate 84, O2 saturation 94% on room air, respiratory rate 20, with a temperature of 97.3. HEENT: The patient is atraumatic, normocephalic. PERRLA, with anicteric sclerae. Extraocular movements are intact. Oral mucosa is dry. Tongue is midline. NECK: Supple, nontender. No thyromegaly appreciated and no carotid bruits auscultated. LUNGS: Clear bilaterally to auscultation, with no wheezing, rhonchi or rales. CARDIOVASCULAR: No murmurs, gallops, or rubs noted. Rate and rhythm are regular. Normal S1 and S2. ABDOMEN: Soft, diffusely tender, primarily in the upper quadrants and over the epigastrium. She has positive bowel sounds in all 4 quadrants. : Deferred. MUSCULOSKELETAL: There is no clubbing, no cyanosis, and no edema. She has +2 distal pulses palpable, full range of motion. Gross motor and sensation are intact. NEUROLOGIC: She is grossly intact, with no focal deficits. PSYCHIATRIC: She is cooperative and appropriate. DIAGNOSTIC STUDIES/LAB DATA: Sodium 133, potassium 3.9, chloride 102, CO2 of 21, anion gap 10, BUN 24, creatinine 0.84, GFR is 72.4, BUN/creatinine ratio is 28.6. Glucose 409, 403, and 405. Lactic acid 2.0. Calcium 9.5. Magnesium 1.5. Total bilirubin 0.30, AST 10, ALT 18, alk phos 71. Total creatine kinase 35. Troponin is negative at 0.00. CRP is elevated at 9.22. Total protein 7.1 , albumin 3.8, globulin 3.3, albumin/globulin ratio is 1.2. Lipase is 32. Urinalysis shows clear yellow urine with trace ketones and 3+ glucose, but no acute infective process. WBCs 11.0, RBCs 4.95, hemoglobin 13.5, hematocrit 42, and platelets are 166. Imaging: Flat plate of the abdomen shows nonobstructive bowel gas pattern and a large amount of retained stool throughout the colon. CT of the brain, also dated today, shows no acute intracranial pathology. She has stable encephalomalacia consistent with remote infarcts, moderate sinus mucosal inflammatory disease with an air-fluid level in the right maxillary sinus. In the correct clinical setting, this may represent acute sinusitis. Please note this CAT scan, as compared to CAT scans from 1 and 2 years ago, shows persistent encephalomalacia with no evidence of new pathology. Ultrasound of the gallbladder shows no evidence of cholelithiasis or biliary duct dilatation. IMPRESSION: This is a 48-year-old female patient, who presents with intractable nausea and vomiting, history of gastroparesis with hyperglycemia. PLAN: 1. Hyperglycemia with concurrent nausea and vomiting: Workup up to this point and imaging have been negative for any acute process. Gallbladder seems to be normal and she is not obstructed. She does have some constipation on her x-ray ; however, she does not appear to be blocked. She has already received 1 L of fluid in the ED. We will order another liter of fluid and maintenance fluids at 100 mL per hour. She will be placed on lispro sliding scale and currently n.p.o. status. 2. Nausea and vomiting: It is unclear whether this is related to her existing diagnosis of gastroparesis versus an acute gastroenteritis or viral syndrome. The patient states she has not had issues with her gastroparesis lately and has not had this type of vomiting before. We will alternate Zofran and Reglan, continue her IV fluids, keep her n.p.o., except ice chips. She is not currently vomiting anymore; however, she is still nauseous. We will slowly advance her diet as tolerated. 3. For her diabetes mellitus with hyperglycemia, her elevated sugars at this point are likely due to acute infection and dehydration. We will check her blood sugars every 4 hours. She did have 10 units of regular insulin upon arrival; however, her sugar has not come down. We will place her on sliding scale and again continue fluids, withhold diet at this point until her nausea and vomiting have subsided. 4. For her history of seizure disorder, the patient takes Keppra 2 times a day. This will be continued. 5. For her history of hyperlipidemia, she will be continued on her atorvastatin 80 mg p.o. daily and also aspirin 81 mg daily. 6. For her history of GERD, we will continue famotidine 10 mg p.o. daily. 7. For her hypomagnesemia and hyponatremia, she has been treated with IV fluids. She will also receive 2 g of mag sulfate and recheck her magnesium and electrolytes in the morning. 8. Disposition: Admit to observation. 9. Diet: N.p.o. 10. Fluids, electrolytes, and nutrition: IV normal saline and n.p.o., except ice chips for now. I have also instructed Nursing to do neuro checks q.8 hours given her history of seizures; however, she is currently neurologically intact. 11. DVT prophylaxis with heparin 5000 units q.8 hours and ambulate as tolerated. The rest of the patient's course will be determined by further diagnostics, laboratories, and input from other providers as warranted during this admission. This plan of care has been discussed with Dr. Anel Rodas, the attending on this admission, and she is in agreement with the plan. TIME SPENT: Time spent was approximately 65 minutes on interviewing the patient , evaluating the chart, and determining plan of care. CHEMA GROVER NP [id number]/CPS #: [id number] SANAZ
[2018-08-06] MEDS ORDERED: Acetaminophen TAB* 325 MG ONE (19:41)
[2018-08-06] MEDS: levETIRAcetam TAB* 500 MG PO SCH (19:54)
[2018-08-06] MEDS: Docusate CAP* 100 MG PO SCH (19:56)
[2018-08-07] MEDS: NS 0.9% 1000 ML* 1,000 ML IV SCH ×3 (02:11→23:24)
[2018-08-07] MEDS: Insulin LISPRO* 1 UNITS UNIT SUBCUT SCH ×6 (05:13→21:24)
[2018-08-07] MEDS: Heparin VIAL(*) 5000 UNITS/ML VIAL (FIVE THOUSAND) SUBCUT SCH ×3 (05:13→21:24)
[2018-08-07] MEDS: Acetaminophen TAB* 325 MG PO PRN (08:19)
[2018-08-07] MEDS: Aspirin 81 mg CHEW TAB* 81 MG TAB.CHEW PO SCH (08:20)
[2018-08-07] MEDS: Docusate CAP* 100 MG PO SCH ×2 (08:20→21:24)
[2018-08-07] MEDS: Famotidine TAB* 20 MG PO SCH (08:20)
[2018-08-07] MEDS: levETIRAcetam TAB* 500 MG PO SCH ×2 (08:20→21:24)
[2018-08-07] MEDS: Lisinopril TAB* 10 MG PO SCH (08:20)
[2018-08-07] MEDS: Atorvastatin* 80 MG TAB PO SCH (08:20)
[2018-08-07 09:41] LABS: ABS Basophils 0 10^3/ul (0-0.2); ABS Eosinophils 0.2 10^3/ul (0-0.6); ABS Monocytes 0.3 10^3/ul (0-0.8); ABS Neutrophils 4.4 10^3/ul (1.5-7.7); ABS Nucleated RBC 0 10^3/ul; Hematocrit 35 % (35-47); Hemoglobin 11.4 g/dl (12.0-16.0); Lymphocyte % 37.9 %; Mean Corpuscular HGB Conc 33 g/dl (31-36); Mean Corpuscular Hemoglobin 28 pg (27-31); Mean Corpuscular Volume 85 fL (80-97); Mean Platelet Volume 9.8 fL (7.4-10.4); Nucleated Red Blood Cells % 0.1; Platelet Count 137 10^3/ul (150-450); Red Blood Count 4.12 10^6/ul (4.00-5.40); Red Cell Distribution Width 15 % (10.5-15); White Blood Count 7.9 10^3/ul (3.5-10.8)
[2018-08-07 10:00] LABS: Albumin 3.1 g/dL (3.2-5.2); Albumin/Globulin Ratio 1.2 (1-3); BUN/Creatinine Ratio 15.6 (8-20); Globulin 2.5 g/dL (2-4); Magnesium 1.7 mg/dL (1.9-2.7); Total Bilirubin 0.3 mg/dL (0.2-1.0); Total Protein 5.6 g/dL (6.4-8.9)
[2018-08-07] MEDS ORDERED: Magnesium Sulfate 2 GM IV* 2 GM/50 ML BAG IVPB ONE (14:02)
--- NOTE | 2018-08-07 18:20 | PN ---
Subjective Date of Service: 08/07/18 Interval History: Received call from RN this morning who stated that patient would like diet advanced, therefore, ordered placed for soft/consistent card diet for breakfast. On assessment this morning patient was sitting in bed. Reports she tolerated breakfast well and denied abd, nausea, vomiting. Lunch advanced to consistent carb/regular diet. Denies n/v/d, abd pain, urinary symptoms, cp, sob, palpitations. Objective Active Medications: Acetaminophen (Tylenol Tab*) 650 mg PO Q6H PRN PRN Reason: PAIN Last Admin: 08/07/18 08:19 Dose: 650 mg Aspirin (Aspirin 81 Mg Chew Tab*) 81 mg PO DAILY [facility] Last Admin: 08/07/18 08:20 Dose: 81 mg Atorvastatin Calcium (Lipitor*) 80 mg PO DAILY [facility] Last Admin: 08/07/18 08:20 Dose: 80 mg Dextrose (D50w Syringe 50 Ml*) 12.5 gm IV PUSH .FOR FS < 60 - SS PRN PRN Reason: FS < 60 Docusate Sodium (Colace Cap*) 100 mg PO BID [facility] Last Admin: 08/07/18 08:20 Dose: 100 mg Famotidine (Pepcid Tab*) 10 mg PO DAILY [facility] Last Admin: 08/07/18 08:20 Dose: 10 mg Heparin Sodium (Porcine) (Heparin Vial(*)) 5,000 units SUBCUT Q8HR [facility] Last Admin: 08/07/18 12:30 Dose: 5,000 units Sodium Chloride (Ns 0.9% 1000 Ml*) 1,000 mls @ 100 mls/hr IV PER RATE [facility] Last Admin: 08/07/18 13:06 Dose: 100 mls/hr Insulin Human Lispro (Humalog*) 0 units SUBCUT Q4H [facility]; Protocol Last Admin: 08/07/18 17:25 Dose: 6 units Levetiracetam (Keppra Tab*) 500 mg PO BID [facility] Last Admin: 08/07/18 08:20 Dose: 500 mg Lisinopril (Prinivil Tab*) 10 mg PO DAILY [facility] Last Admin: 08/07/18 08:20 Dose: 10 mg Metoclopramide HCl (Reglan Iv*) 10 mg IV Q6H PRN PRN Reason: NAUSEA/VOMITING Last Admin: 08/06/18 13:20 Dose: 10 mg Ondansetron HCl (Zofran Inj*) 4 mg IV Q4H PRN PRN Reason: NAUSEA/VOMITING Vital Signs - 8 hr 08/07/18 08/07/18 11:38 14:51 Temperature 98.0 F 98.1 F Pulse Rate 71 70 Respiratory 16 18 Rate Blood Pressure 119/61 116/87 (mmHg) O2 Sat by Pulse 99 97 Oximetry Oxygen Devices in Use Now: None Appearance: Cooperative, NAD Eyes: No Scleral Icterus Ears/Nose/Mouth/Throat: Clear Oropharnyx, Mucous Membranes Moist Neck: NL Appearance and Movements; NL JVP Respiratory: Symmetrical Chest Expansion and Respiratory Effort, Clear to Auscultation Cardiovascular: NL Sounds; No Murmurs; No JVD, RRR, No Edema Abdominal: NL Sounds; No Tenderness; No Distention Lymphatic: No Cervical Adenopathy Extremities: No Edema Skin: No Rash or Ulcers Nutrition: Taking PO's Result Diagrams: 08/07/18 09:25 08/07/18 09:25 Additional Lab and Data: Laboratory Results - last 24 hr 08/06/18 08/06/18 08/06/18 12:53 20:02 23:52 WBC RBC Hgb Hct MCV MCH MCHC RDW Plt Count MPV Neut % (Auto) Lymph % (Auto) [place] % (Auto) Eos % (Auto) Baso % (Auto) Absolute Neuts (auto) Absolute Lymphs (auto) Absolute Monos (auto) Absolute Eos (auto) Absolute Basos (auto) Absolute Nucleated RBC Nucleated RBC % Sodium Potassium Chloride Carbon Dioxide Anion Gap BUN Creatinine Est GFR ( Amer) Est GFR (Non-Af Amer) BUN/Creatinine Ratio Glucose POC Glucose (mg/dL) 339 H 129 H 179 H Calcium Magnesium Total Bilirubin AST ALT Alkaline Phosphatase Total Protein Albumin Globulin Albumin/Globulin Ratio 08/07/18 08/07/18 08/07/18 05:04 08:16 09:25 WBC 7.9 RBC 4.12 Hgb 11.4 L Hct 35 MCV 85 MCH 28 MCHC 33 RDW 15 Plt Count 137 L MPV 9.8 Neut % (Auto) 55.7 Lymph % (Auto) 37.9 [place] % (Auto) 3.9 Eos % (Auto) 2.0 Baso % (Auto) 0.5 Absolute Neuts (auto) 4.4 Absolute Lymphs (auto) 3.0 Absolute Monos (auto) 0.3 Absolute Eos (auto) 0.2 Absolute Basos (auto) 0 Absolute Nucleated RBC 0 Nucleated RBC % 0.1 Sodium Potassium Chloride Carbon Dioxide Anion Gap BUN Creatinine Est GFR ( Amer) Est GFR (Non-Af Amer) BUN/Creatinine Ratio Glucose POC Glucose (mg/dL) 131 H 128 H Calcium Magnesium Total Bilirubin AST ALT Alkaline Phosphatase Total Protein Albumin Globulin Albumin/Globulin Ratio 08/07/18 08/07/18 09:25 12:12 WBC RBC Hgb Hct MCV MCH MCHC RDW Plt Count MPV Neut % (Auto) Lymph % (Auto) [place] % (Auto) Eos % (Auto) Baso % (Auto) Absolute Neuts (auto) Absolute Lymphs (auto) Absolute Monos (auto) Absolute Eos (auto) Absolute Basos (auto) Absolute Nucleated RBC Nucleated RBC % Sodium 136 Potassium 4.0 Chloride 107 Carbon Dioxide 22 Anion Gap 7 BUN 12 Creatinine 0.77 Est GFR ( Amer) 96.8 Est GFR (Non-Af Amer) 80.0 BUN/Creatinine Ratio 15.6 Glucose 213 H POC Glucose (mg/dL) 278 H Calcium 8.0 L Magnesium 1.7 L Total Bilirubin 0.30 AST 11 L ALT 15 Alkaline Phosphatase 54 Total Protein 5.6 L Albumin 3.1 L Globulin 2.5 Albumin/Globulin Ratio 1.2 Assess/Plan/Problems-Billing Assessment: - Patient Problems (1) Nausea & vomiting Comment: - Improving as she had no episodes of nausea or vomiting today - Advancing diet as tolerated. - Gastroparesis less likely as nausea and vomiting has resolved and she is free from early satiety, belching, bloating, and upper abdominal pain - More likely caused by acute gastroenteritis or virus - Cont IV fluids, monitoring, and advancing diet as tolerated (2) Diabetes Comment: - Cont sliding scale (3) Seizures Comment: - Cont seizure precautions - Cont Keppra (4) Hyperlipemia Comment: - Cont statin and ASA (5) Electrolyte abnormality Comment: - Na has normalized - Mag replaced and will repeat tomorrow Attending: Felicitas Hargrove
[2018-08-08] MEDS: Insulin LISPRO* 1 UNITS UNIT SUBCUT SCH ×3 (00:51→08:55)
[2018-08-08] MEDS: Heparin VIAL(*) 5000 UNITS/ML VIAL (FIVE THOUSAND) SUBCUT SCH (05:20)
[2018-08-08] MEDS: Acetaminophen TAB* 325 MG PO PRN (05:59)
[2018-08-08] MEDS: Atorvastatin* 80 MG TAB PO SCH (07:58)
[2018-08-08] MEDS: Aspirin 81 mg CHEW TAB* 81 MG TAB.CHEW PO SCH (07:59)
[2018-08-08] MEDS: levETIRAcetam TAB* 500 MG PO SCH (07:59)
[2018-08-08] MEDS: Lisinopril TAB* 10 MG PO SCH (07:59)
[2018-08-08] MEDS: Famotidine TAB* 20 MG PO SCH (08:00)
[2018-08-08] MEDS: Docusate CAP* 100 MG PO SCH (08:01)
[2018-08-08] MEDS ORDERED: Magnesium Sulfate 2 GM IV* 2 GM/50 ML BAG IVPB ONE (08:01)
[2018-08-08 08:08] VITALS: BP 157/84
--- NOTE | 2018-08-09 06:36 | DS ---
CC: Dr. Nagi Medina * DISCHARGE SUMMARY: DATE OF ADMISSION: 08/06/18 DATE OF DISCHARGE: 08/08/18 PRIMARY CARE PROVIDER: Dr. Nagi Medina. ATTENDING PHYSICIAN: Dr. Hargrove * (dictated by Francy Mcknight NP) PRIMARY DIAGNOSES: 1. Nausea. 2. Vomiting. 3. Hyperglycemia. 4. Gastritis. SECONDARY DIAGNOSES: 1. Diabetes type 2. 2. Hypertension. 3. Obesity. 4. Diabetic gastroparesis. CONSULTATIONS WHILE IN THE HOSPITAL: No consultations. PROCEDURES WHILE IN THE HOSPITAL: No procedures. STUDIES WHILE IN THE HOSPITAL: 1. EKG: Impression: Sinus bradycardia. 2. Abdominal x-ray: Impression: Nonobstructive bowel gas pattern, large amount of stool throughout the colon. 3. Brain CT: Impression: No acute intracranial pathology. Stable encephalomalacia consistent with remote infarcts. Moderate sinus mucosal inflammatory disease with an air-fluid level in the right maxillary sinus. In the correct clinical setting, this may represent acute sinusitis. 4. Gallbladder ultrasound: Impression: No evidence of cholelithiasis or biliary duct dilatation. DISCHARGE MEDICATIONS: New home medications: No new home medications. Changed home medications: No home medication was changed. Continued home medications: 1. Metformin 1000 mg p.o. b.i.d. 2. Glipizide 10 mg p.o. b.i.d. 3. Aspirin 81 mg p.o. daily. 4. Cimetidine 200 mg p.o. daily. 5. Lipitor 80 mg p.o. daily. 6. Keppra 500 mg p.o. daily. 7. Omeprazole 40 mg p.o. daily. 8. Lisinopril 10 mg p.o. daily. Discontinued home medications: No home medications discontinued. HISTORY OF PRESENT ILLNESS/HOSPITAL COURSE: Ms. Cruz is a 48-year-old female with a past medical history of diabetes type 2, hypertension, obesity, diabetic gastroparesis; who presented to the ED on 08/06/18 with complaints of intractable nausea and vomiting and inability to take water. Please see history and physical dictated by Krista Retana NP for complete summary of the events leading up to this hospitalization, but in short, the patient presented to the emergency department with complaints of intractable nausea and vomiting that started the morning of 08/06/18. In addition, she reports she was unable to take in any water and felt very weak. While in the ED, she was noted to have a mildly elevated white count and low sodium. In addition, glucose was 409 en route with EMS and she was also noted to have low magnesium and elevated CRP at 9.22. The patient was admitted for further evaluation and treatment. During the patient's hospital stay, her workup was negative for any acute process, specifically gallbladder ultrasound and abdominal x-ray. She received fluids while in the emergency room and also while on the floor. The patient's diet was fully progressed as she tolerated and the patient was able to take a regular diet without difficulty yesterday evening and this morning. I suspect the patient's nausea and vomiting was most likely due to a viral process such as gastritis. It is unlikely that this is a recurrent episode of her diabetic gastroparesis as the nausea and vomiting resolved and she is free from early satiety, belching, bloating, and upper abdominal pain. In addition, the patient had a large BM on her day of admission and a small BM today. As for electrolyte abnormalities as previously mentioned at discharge, the patient's sodium level had normalized with food and fluids. The patient needed magnesium replacement IV with her lowest level of magnesium being 1.5 on admission and today 1.8. Ms. Cruz is stable for discharge to home today. Vital signs as follows: Temp 97.9, HR 68, RR 16, O2 saturation 95%, BP 157/84. REVIEW OF SYSTEMS: The patient denies nausea, vomiting, diarrhea, abdominal pain, fever/chills, chest pain, shortness of breath, headache, weakness, dizziness. PHYSICAL EXAM: General: Ms. Cruz is a well-developed, slightly obese, middle - aged woman, sitting in bed, in no acute distress. Appears stated age. HEENT : Pupils equal, round, and reactive to light. EOMs intact. Oral mucous is moist without lesion. Tonsils without erythema or exudate. Pharynx clear. Bilateral external ear canals patent. Auditory canals patent. Tympanic membranes are within normal limits. Neck: Full range of motion. Supple. Respiratory: Symmetrical chest expansion. No accessory muscle use. Lungs: Clear to auscultation. No rhonchi, wheezing, or rubs. CV: Regular rate and rhythm. S1/S2 present. No murmurs, rubs, or gallops. Extremities: Skin warm and smooth bilaterally. No edema. No clubbing or cyanosis. Pedal pulses 2+ bilaterally. Musculoskeletal: Full range of motion. No deformities. Abdomen: Soft, nontender to palpation. Bowel sounds are positive x4. Neuro: Awake, alert, and oriented x4. Moves all extremities. Motor strength is 5/5 in upper and lower extremities bilaterally. Steady gait with no impairment. Skin: Grossly intact without lesions. DISCHARGE PLAN/FOLLOWUP: 1. Nausea and vomiting: The patient's nausea and vomiting have resolved with fluid supplementation and slow advance in diet. The patient will be discharged home with the instructions to slowly increase her diet starting with a bland diet and increasing how she tolerates. We also discussed the importance of small frequent meals, adequate hydration, and avoiding fatty foods. 2. Hyperglycemia: The patient's blood sugars have been ranging from 131 in the a.m. to mid 200s in the evening. We discussed the importance of adhering to a diabetic/ADA diet. In addition, the patient was encouraged to restart her home medications at discharge. The patient was also encouraged to follow up with her primary care provider regarding better control of diabetes. 3. Hypertension: The patient's is mildly hypertensive at discharge with systolic of 157. Otherwise, the patient has been normotensive during the hospital stay. The patient to resume home medication of lisinopril 10 mg p.o. daily at discharge. 4. Obesity: Discussed the importance of weight management, diabetic diet, regular exercise. 5. Seizures: Continue Keppra as previously ordered. 6. Hyperlipidemia: Continue statin and aspirin. 7. Electrolyte abnormality: As mentioned above, sodium and magnesium have normalized. Discussed possibly needing [id number] replacement of magnesium. I have encouraged the patient to follow up with primary care provider regarding this. 8. The patient should return to the ER in the nearest hospital if she experiences any new or worsening symptoms such as shortness of breath, lightheadedness, dizziness, chest discomfort, high fevers, chills, night sweats , loss of consciousness, or any other worrisome signs or symptoms. This is a summarized report of a complex medical history and hospital stay. For further details, please see the entire medical record. TIME SPENT: Approximately 45 minutes was spent on this discharge, greater than half that time was spent [id number] with the patient discussing discharge plan and instructions. FRANCY MCKNIGHT, BILINGUAL EXECUTIVE ASSISTANT [id number]/[facility] #: [id number] SANAZ
== END 2018-08-08 13:30 | disposition home or self-care (01) | DRG 249 ==
LOC: ED 08:24 → MED 12:33 → OBSVTOIN 08-07 14:32 → MED 08-07 16:19
PROVIDERS: ADMIT Internal Medicine; ATTEND Internal Medicine
DX: A08.4 Viral intestinal infection, unspecified (principal); E87.1 Hypo-osmolality and hyponatremia; E11.43 Type 2 diabetes mellitus with diabetic autonomic (poly)neuropathy; K31.84 Gastroparesis; R56.9 Unspecified convulsions; E78.5 Hyperlipidemia, unspecified; E83.42 Hypomagnesemia; I10 Essential (primary) hypertension; E66.9 Obesity, unspecified; E11.65 Type 2 diabetes mellitus with hyperglycemia; K21.9 Gastro-esophageal reflux disease without esophagitis; G93.89 Other specified disorders of brain; Z79.82 Long term (current) use of aspirin; Z79.84 Long term (current) use of oral hypoglycemic drugs; Z68.38 Body mass index [BMI] 38.0-38.9, adult; Z87.891 Personal history of nicotine dependence; Z82.3 Family history of stroke
CPT/HCPCS: 36415; 70450; 74019; 76705; 80053; 81003; 82550; 82947; 83605; 83690; 83735; 84484; 85025; 86140; 93005; 99285; A9270-GY; J1644; J2405; J2765; J3475

== ENCOUNTER 2019-06-01 20:15 | Inpatient (IN) | payer OTHER ==
[2019-06-01] MEDS ORDERED: NS 0.9% 1000 ML** 1,000 ML IV ONE (20:21)
--- NOTE | 2019-06-01 20:22 | ED ---
Neurological HPI - HPI Summary HPI Summary: Patient is a 49 y/o F w/ Hx of stroke, HTN, HLD, and diabetes who presents to [facility] via EMS from [facility] for evaluation of right-sided numbness and dizziness. She states that Sx onset today, 06/01/19 at 1700 and lasted around 20 minutes. Patient went to [place] for evaluation. She was given ASA and Plavix. Brain CT was done and negative. Patient was evaluated by [facility] via telestroke, it was advised that the patient receive CTA. Patient's case had been discussed with Dr. Ryder and Dr. Reagan from [facility], who had accepted the patient for transfer. She notes that she used to be on a blood thinner due to clot in left side of her neck, but states that she was taken off this medication. Home medications and allergies are reviewed. - History of Current Complaint Stated Complaint: POSSIBLE TIA PER EMS Hx Obtained From: Patient Onset/Duration: Resolved Timing: Intermittent Episodes Lasting: - 20 minutes Current Severity: None Pain Scale Used: 0-10 Numeric Character: Dizzy, Numbness/Tingling - right sided Associated Signs and Symptoms: Positive: Dizziness, Numbness - right sided - Additional Pertinent History Primary Care Physician: [id number] - Allergy/Home Medications Allergies/Adverse Reactions: Allergies Allergy/AdvReac Type Severity Reaction Status Date / Time No Known Allergies Allergy Verified 06/01/19 20:21 PMH/Surg Hx/FS Hx/Imm Hx Endocrine/Hematology History: Reports: Hx Blood Disorders - in neck , Hx Diabetes Cardiovascular History: Reports: Hx Hypercholesterolemia, Hx Hypertension Denies: Hx Pacemaker/ICD Respiratory History: Denies: Hx Asthma History: Denies: Hx Dialysis, Hx Renal Disease Sensory History: Denies: Hx Contacts or Glasses, Hx Hearing Aid Opthamlomology History: Denies: Hx Contacts or Glasses Neurological History: Reports: Hx Seizures Psychiatric History: Denies: Hx Panic Disorder - Surgical History Surgery Procedure, Year, and Place: RT FOREARM FX 2006. RT CARPAL TUNNEL - Immunization History Date of Tetanus Vaccine: unk Date of Influenza Vaccine: unk - Family History Known Family History: Positive: Other - CVA (mother's side) - Social History Alcohol Use: Occasionally Substance Use Type: Reports: None Smoking Status (MU): Former Smoker Review of Systems Negative: Fever - on vitals, temp is 97.4 F Neurological: Other - positive - dizziness Positive: Numbness - right-sided All Other Systems Reviewed And Are Negative: Yes Physical Exam - Summary Physical Exam Summary: VITAL SIGNS: Reviewed. GENERAL: Patient is a well-developed and nourished female. who is lying comfortable in the stretcher. Patient is not in any acute respiratory distress. HEAD AND FACE: No signs of trauma. No ecchymosis, hematomas or skull depressions. No sinus tenderness. EYES: PERRLA, EOMI x 2, No injected conjunctiva, no nystagmus. EARS: Hearing grossly intact. Ear canals and tympanic membranes are within normal limits. MOUTH: Oropharynx within normal limits. NECK: Supple, trachea is midline, no adenopathy, no JVD, no carotid bruit, no c- spine tenderness, neck with full ROM. CHEST: Symmetric, no tenderness at palpation. LUNGS: Clear to auscultation bilaterally. No wheezing or crackles. CVS: Regular rate and rhythm, S1 and S2 present, no murmurs or gallops appreciated. ABDOMEN: Soft, non-tender. No signs of distention. No rebound, no guarding, and no masses palpated. Bowel sounds are normal. EXTREMITIES: FROM in all major joints, no edema, no cyanosis or clubbing. NEURO: Alert and oriented x 3. No acute neurological deficits. Speech is normal and follows commands. GCS 15. NIH 0. SKIN: Dry and warm. Triage Information Reviewed: Yes Vital Signs Reviewed: Yes - [place] Coma Scale Best Eye Response: 4 - Spontaneous Best Motor Response: 6 - Obeys Commands Best Verbal Response: 5 - Oriented Coma Scale Total: 15 Procedures - Sedation Patient Received Moderate/Deep Sedation with Procedure: No Diagnostics - Laboratory Result Diagrams: 06/01/19 20:35 06/01/19 20:35 Lab Statement: Any lab studies that have been ordered have been reviewed, and results considered in the medical decision making process. - EKG 2027 Cardiac Rate: NL - rate of 78 BPM EKG Rhythm: Sinus Rhythm Summary of EKG Findings: EKG showed NSR with rate of 79 BPM, no ST elevation, T wave inversion in lead III. This EKG was reviewed and interpreted by Dr. Reagan. NIH Scale - NIH Scale Level of Consciousness: Alert/Keenly Responsive Ask Patient the Month and His/Her Age: Both Correct Ask Pt to Open/Close Eyes and Rn Digestive/Release Non-Paretic Hand: Both Correctly Best Gaze (Only Horizontal Eye Movement): Normal Visual Field Testing: No Visual Loss Facial Paresis-Pt to Smile & Close Eyes or Grimace Symmetry: Normal/Symmetrical Motor Function - Right Arm: No Drift-Holds 10 Seconds Motor Function - Left Arm: No Drift-Holds 10 Seconds Motor Function - Right Leg: No Drift-Holds 10 Seconds Motor Function - Left Leg: No Drift-Holds 10 Seconds Limb Ataxia-Must be out of Proportion to Weakness Present: Absent Sensory (Use Pinprick to Test Arms/Legs/Trunk/Face): Normal Best Language (Describe Picture, Name Items): No Aphasia Dysarthria (Read Several Words): Normal Extinction and Inattention: No Abnormality Total Score: 0 Course/Dx - Course Assessment/Plan: Patient is a 49-year-old female who presents to the emergency room via ambulance after the patient was transferred from [facility]. She complains of a dizziness and right-sided numbness which started at 17:00 and lasted for 20 minutes. The patient was worked up and had blood work, head CT and consult with [facility] Dr. Burgos. They recommended no tPa and transfer to [facility]. The case was discussed also with Dr. Ryder who accepted the patient for transfer to [facility]. Dr. Ryder recommends a CTA head and neck and admission to the hospitalist services for a work up for CVA. The patient was given aspirin and Plavix 300 mg by mouth. Upon arrival to [facility] patient is asymptomatic and feeling better. NIH score is 0. In the ED course the patient is hemodynamically stable alert and oriented 3. Blood work without any significant abnormality. CTA is ordered and results are pending. Results will be followed by Dr. Hargrove. I discussed my physical exam and findings with Dr. Hargrove who accepted the patient for admission. - Diagnoses Provider Diagnoses: TIA (transient ischemic attack) - Physician Notifications Discussed Care Of Patient With: Felicitas Hargrove Time Discussed With Above Provider: 20:50 Instructed by Provider To: Other - Patient's case was discussed with Dr. Hargrove, Dr. Hargrove accepts for admission. Discharge ED - Sign-Out/Discharge Documenting (check all that apply): Patient Departure - admit - Discharge Plan Condition: Stable Disposition: ADMITTED TO [facility] - Billing Disposition and Condition Condition: STABLE Disposition: Admitted to [facility] - Attestation Statements Document Initiated by Katie: Yes Documenting Scribe: GEORGE GUDINO Provider For Whom Katie is Documenting (Include Credential): HAROLDO REAGAN MD Scribe Attestation: IGEORGE, scribed for HAROLDO REAGAN MD on 06/02/19 at 1619. Scribe Documentation Reviewed: Yes Provider Attestation: The documentation as recorded by the GEORGE abad accurately reflects the service I personally performed and the decisions made by me, HAROLDO REAGAN MD Status of Scribe Document: Viewed
[2019-06-01] MEDS ORDERED: Iodixanol* (CONTRAST) 320 MG/ML 100 ML SDV IV ONE (20:27)
[2019-06-01 20:41] LABS: ABS Basophils 0.1 10^3/ul (0-0.2); ABS Eosinophils 0.1 10^3/ul (0-0.6); ABS Lymphocytes 2.8 10^3/ul (1.0-4.8); ABS Monocytes 0.4 10^3/ul (0-0.8); ABS Neutrophils 5.8 10^3/ul (1.5-7.7); Eosinophil % 1.3 %; Hematocrit 39 % (35-47); Hemoglobin 12.7 g/dL (12.0-16.0); Lymphocyte % 30.7 %; Mean Corpuscular HGB Conc 33 g/dL (31-36); Mean Corpuscular Hemoglobin 28 pg (27-31); Mean Corpuscular Volume 85 fL (80-97); Mean Platelet Volume 9.6 fL (7.4-10.4); Nucleated Red Blood Cells % 0.1; Platelet Count 200 10^3/uL (150-450); Red Blood Count 4.57 10^6 /uL (3.70-4.87); Red Cell Distribution Width 14 % (10-15); White Blood Count 9.2 10^3/uL (3.5-10.8)
[2019-06-01 20:48] LABS: INR 0.92 (0.82-1.09)
[2019-06-01 20:52] LABS: Urine Appearance Clear; Urine Bacteria 1+ (Absent); Urine Bilirubin Negative (Negative); Urine Blood 1+ (Negative); Urine Color Straw; Urine Glucose Negative (Negative); Urine Ketones Negative (Negative); Urine Nitrite Negative (Negative); Urine Protein Negative (Negative); Urine Red Blood Cell Trace(0-2/hpf) (Absent); Urine Specific Gravity 1.004 (1.010-1.030); Urine Urobilinogen Negative (Negative); Urine White Blood Cell Trace(0-5/hpf) (Absent)
[2019-06-01 21:00] LABS: Albumin/Globulin Ratio 1.2 (1-3); BUN/Creatinine Ratio 17.9 (8-20); Calcium 9.7 mg/dL (8.6-10.3); EGFR Non-African American 78.5 (>60); Globulin 3.3 g/dL (2-4); HDL Cholesterol 41.8 mg/dL; Potassium 4.4 mmol/L (3.5-5.0); Total Bilirubin 0.2 mg/dL (0.2-1.0); Total Protein 7.3 g/dL (6.4-8.9)
[2019-06-01] MEDS ORDERED: Al Hydrox/Mg Hydrox/Simet LIQ* 30 ML UDC PO PRN (21:07)
[2019-06-01] MEDS ORDERED: Dextrose 50% VIAL 50 ml IV PUSH PRN (21:10)
[2019-06-01] MEDS ORDERED: Atorvastatin* 40 MG TAB PO ONE (22:34)
[2019-06-01] MEDS: levETIRAcetam TAB* 500 MG PO SCH (22:43)
[2019-06-01] MEDS: Heparin VIAL(*) 5000 UNITS/ML VIAL (FIVE THOUSAND) SUBCUT SCH (22:44)
--- NOTE | 2019-06-02 01:48 | HP ---
CC: Dr. Prather; Dr. Ryder * HISTORY AND PHYSICAL: DATE OF ADMISSION: 06/01/19 PRIMARY CARE PROVIDER: Dr. Prather, [facility] in [place], [place]. CHIEF COMPLAINT: Right-sided tingling and numbness. HISTORY OF PRESENT ILLNESS: Eloina Cruz is a 49-year-old female with a history of obesity, hypertension, diabetes, who also has a history of right carotid artery dissection in 2016 with stroke secondary to dissection and subsequent development of seizures, who presented today complaining of tingling on the right side of her body. The patient stated that at approximately 5 p.m. tonight when she "moved too fast," she turned and she felt numbness and tingling on the right hand and some tingling on her right leg. It lasted a "couple of seconds" and went away. The patient has also been complaining of posterior headache for the past 2 days, but it has gotten better now. She has had no visual problems and no other neuro deficits. She was seen at [facility] and there she was evaluated by [facility] from [place]. She was evaluated. She was not a candidate for tPA and she was transferred to our hospital for further evaluation. Upon arrival to our hospital, her symptoms resolved. Her INH score was 0 and she is going to be placed on 1 hour observation with a diagnosis of likely TIA. PAST MEDICAL HISTORY: 1. History of right carotid artery dissection subsequent stroke. The patient was on anticoagulation until a year ago when it was stopped by her primary care provider. She had been taking baby aspirin daily. 2. Seizure disorder that was diagnosed after her stroke. The patient stated that she had multiple episodes of syncope and that is when she was diagnosed with seizures and placed on Keppra. 3. History of hypertension. 4. Dyslipidemia. 5. Gastroesophageal reflux disease. 6. Diabetes, type 2. 7. History of diabetic neuropathy. PAST SURGICAL HISTORY: History of right wrist surgery and . MEDICATIONS AT HOME: Include: 1. Metformin 1000 mg b.i.d. 2. Keppra 500 mg b.i.d. 3. Glipizide 10 mg b.i.d. 4. Aspirin 81 mg daily. The patient also stated that she was supposed to be on "a blood pressure pill," but her doctor did not give her any prescriptions for it. ALLERGIES: No known drug allergies. FAMILY HISTORY: Positive for father with prostate cancer. Mother healthy. Maternal grandparents both had CVA. SOCIAL HISTORY: The patient has a history of smoking a couple of cigarettes a day for 20 years or so and she quit smoking approximately a year ago. She denies any alcohol or drug use. She is currently unemployed. She lives with her mother, Kush Black, her surrogate. REVIEW OF SYSTEMS: Please see history of present illness. In addition at the time of admission, the patient stated that she had been having problems with dry skin and she had been "picking at it" for quite sometime now. Her posterior headache resolved. She has no visual deficits. She denies any weakness, problems with gait. Her numbness resolved within seconds from occurrence. The remaining 12 systems were reviewed with the patient and were otherwise negative. PHYSICAL EXAMINATION GENERAL: The patient is a pleasant 49-year-old female who is in no acute distress. The patient is alert and oriented x3. VITAL SIGNS: Blood pressure of 149/79, heart rate of 77 and regular, respiratory rate 21, oxygen saturation of 98% on room air, temperature of 97.4. HEENT: Head atraumatic, normocephalic. Eyes: Pupils are equal and reactive to light and accommodation. Oropharynx is clear. Mucosa is moist. NECK: Supple, no JVD. No bruits bilaterally. RESPIRATORY: Clear to auscultation bilaterally. CARDIOVASCULAR: Regular rate and rhythm. No murmur. ABDOMEN: Soft and nontender. Bowel sounds present in all 4 quadrants. Ventral hernia noted. EXTREMITIES: There is no edema. Pulses are +2 bilaterally. No clubbing or cyanosis. NEURO: Speech is clear. Cranial nerves II through XII are grossly intact. Motor strength is 5/5 bilaterally. Speech is clear. [id number] is mildly dysmetric bilaterally, but symmetrical. Handgrip is at 5/5. The patient has no pronator drift. PSYCHIATRIC EVALUATION: Pleasant and cooperative with the evaluation. Oriented x3. DIAGNOSTIC STUDIES/LAB DATA: Sodium of 135, potassium of 4.4, chloride is 103 , carbon dioxide 23, BUN 14, creatinine 0.78. Liver functions are unremarkable. Troponin 0. LDL cholesterol 124. White blood cell count of 9.2, hemoglobin of 12.7, hematocrit of 39, and platelets of 200. Urinalysis grossly unremarkable apart from low specific gravity of 1.004 and trace blood and trace bacteria. CT angiogram of the head, Impression: "Areas of old infarct in the right frontoparietal region and right temporal occipital region which are unchanged from 08/06/18." Sphenoid and bilateral maxillary sinus disease. Periodontal disease of teeth #13 and 15. Otherwise negative CTA of the head and no evidence of stenosis or occlusion. The CTA of neck also showed no evidence of occlusion. CTA of the brain was reported at [facility] was negative. The patient's EKG showed normal sinus rhythm with a heart rate of 79 beats per minute with no ST changes. ASSESSMENT AND PLAN: 1. A 49-year-old female with a history of obesity and carotid artery dissection , presents with transient right-sided numbness. She is going to be placed on overnight observation for further workup of transient ischemic attack. She was going to be placed on neuro checks as well as seizure precautions since she has a history of seizure disorder. I will obtain a transesophageal echocardiogram with bubble study. She was going to continue on aspirin and Plavix is going to be added on. Dr. Ryder was already notified by the [facility] and we will ask for Dr. Ryder to see the patient in the morning. An MRI of the brain would be beneficial to be obtained, unfortunately we were unable to perform any urgent MRI because of the weekend. 2. The patient has dyslipidemia. Does not appear to be on statin. We will place the patient on Lipitor. 3. The patient has a history of hypertension and she is mildly hypertensive, but we will allow that due to her workup for transient ischemic attack. 4. For her diabetes, the patient is going to be on insulin sliding scale and her metformin is going to held. 5. For history of seizure disorder, the patient is going to be maintained seizure precaution and Keppra is going to be continued. 6. For DVT prophylaxis, the patient is going to be placed on heparin subcutaneously. 7. The patient's code status is full. Her surrogate is her mother. TIME SPENT: Approximately 65 minutes was spent on the admission of this patient. More than half that time was spent [id number] with the patient during the interview and physical exam. [id number]/[facility] #: [id number] SANAZ
[2019-06-02] MEDS: Heparin VIAL(*) 5000 UNITS/ML VIAL (FIVE THOUSAND) SUBCUT SCH ×3 (05:42→21:02)
[2019-06-02] MEDS: Insulin LISPRO* 1 UNITS UNIT SUBCUT SCH ×4 (08:05→21:02)
[2019-06-02] MEDS: Clopidogrel TAB* 75 MG PO SCH (08:09)
[2019-06-02] MEDS: Docusate CAP* 100 MG PO SCH ×2 (08:10→21:02)
[2019-06-02] MEDS: Aspirin 81 mg CHEW TAB* 81 MG TAB.CHEW PO SCH (08:10)
[2019-06-02] MEDS: levETIRAcetam TAB* 500 MG PO SCH ×2 (08:10→21:02)
--- NOTE | 2019-06-02 14:08 | CONS ---
NEUROLOGY CONSULTATION: DATE OF CONSULT: 06/02/19 LOCATION: She is an inpatient in room 446. REFERRING PROVIDER: Dr. Hargrove. PRIMARY CARE PROVIDER: Dr. Prather, [place], [place]. CHIEF COMPLAINT: Episode of right-sided numbness and dizziness. HISTORY OF PRESENT ILLNESS: Eloina Cruz is a 49-year-old right-handed woman , who yesterday afternoon started to feel dizzy. She felt that things were somewhat spinning and then she noted numbness and tingling of her right arm and hand. Subsequently, she noticed that her right leg felt numb and tingly. She had no difficulty speaking or coming up with words and no numbness of the face. She is right-handed. She was, I believe, taken to [facility] by a friend. She said her symptoms resolved within about 10 minutes including the numbness and the dizziness. In the [facility], she was asymptomatic. She had a [facility] Telestroke consultation and was recommended that she be transferred here and was not a tPA candidate. She was not able to get a CT angiogram because that is not available at [facility]. She has been asymptomatic since that episode yesterday. She has a history of right carotid dissection in 2016. She had an occluded right internal carotid. She was transferred from our emergency room to [facility]. She was on anticoagulation with Coumadin for a couple of years and it was stopped earlier this year. She has been on aspirin therapy since. PAST MEDICAL HISTORY: Otherwise notable for hypertension; type 2 diabetes with what sounds to be poor control; diabetic neuropathy; dyslipidemia, not on a statin; seizure disorder, on Keppra. She says that seizure disorder started the same year that she had the stroke from the carotid dissection. Her neurologist is Dr. Carlos Powell at [facility] in [place]. She says she takes her Keppra 500 mg twice per day regularly. MEDICATIONS: At home consist of: 1. Metformin 1000 mg p.o. b.i.d. 2. Keppra 500 mg p.o. b.i.d. 3. Glipizide 10 mg p.o. b.i.d. 4. Aspirin 81 mg p.o. daily. She says she was prescribed an antihypertensive in the past, but it sounds as though she ran out of it. She does not take statins and she does not know why. She denies a reaction to them. FAMILY HISTORY: Notable for both her maternal grandparents having had a stroke. Mother is alive and she lives with her. Father has prostate cancer. SOCIAL HISTORY: Notable for quitting smoking after 20-pack years a year ago. She does not drink alcohol. She is unemployed. REVIEW OF SYSTEMS: She denies recent change in weight, fevers, chills, or sweats. No chest pain or shortness of breath. No diarrhea or constipation. No recent falls. She says her last seizure was several years ago. She says they consisted of head turning to the left and then loss of consciousness. There is no recent change in bladder function. No dysuria. No recent falls or faints. She has had a headache on and off for a week. She gets episodes of vertigo, which first began about a year ago. She said she had vertigo straight for about 2 weeks and it gradually resolved. She said she was treated with medicine for dizziness. PHYSICAL EXAM: She is morbidly obese. She has multiple areas of excoriation on her skin from scratching and picking at it. She has been afebrile with most recent temperature 97.4, she has been hypertensive with most recent blood pressure down to 123/59. She had been running about 160/100 earlier in her hospitalization. Respirations are regular at 16, oxygen saturation is 95% on room air. Lungs are clear. Heart tones are normal. Heart rhythm is regular. There are no murmurs. Carotid pulses are present and there are no cervical bruits. Neurological Exam: Pupils react equally from 3.5 down to 2 mm. Funduscopic exam reveals arteriolar tortuosity and silver wiring. Disks are sharp. Eye movements are normal. Visual ogden are full to confrontation. Facial musculature is symmetric. Facial sensation to light touch and pin is symmetric. Palate and tongue appear normal and speech is clear without dysarthria. Hearing is intact bilaterally and neck strength is normal to shoulder shrug. Motor exam reveals no spasticity. She has normal strength proximally and distally in the upper and lower extremities. There is no drift of any limb. Sensory exam is notable for diminished light touch and pin in the right median distribution. She has intact light touch and pin discrimination in the lower extremities proximally and distally. Reflexes are hypoactive diffusely, absent at the ankles. Plantars are flexor bilaterally. Finger taps are slower in the left hand than the right. Skyrub-fi-ynoz maneuver is slow and purposeful bilaterally, but there is no tremor or dysmetria. I did not attempt to ambulate her. She is alert and fully oriented. Memory seems intact and language is fluent. She has adequate attention, concentration, and fund of knowledge. DIAGNOSTIC STUDIES/LAB DATA: Includes a CT angiogram of the head and neck interpreted as normal. I reviewed the images and I agree. There is no evidence of dissection or stenosis at this point in time. CTA of the brain is reviewed and reveals old infarction in the right frontotemporal area. Other laboratory data notable for a CBC from yesterday, which is completely normal. INR normal yesterday at 0.92. Chemistries notable for glucose this morning of 184, magnesium 1.8. Her cholesterol yesterday was 205 and LDL 124. IMPRESSION AND PLAN: Impression is that of a possible left hemispheric transient ischemic attack, alternatively she could have had a brainstem ischemic attack given the dizziness. At this point, she is asymptomatic and her exam is normal. She has numerous vascular risk factors. She had been appropriately started on a statin. She was also started on Plavix 75 mg currently in addition to her aspirin, which I agree with. She has a transthoracic echocardiogram ordered and is pending. I put in an order for MRI scan of the brain without contrast, which will likely be done tomorrow. She should continue Keppra at the current dose of 500 mg twice per day. There is no suggestion from the history that she has had a seizure recently. She is on sliding scale insulin. Her blood pressure has come down spontaneously without the addition of an antihypertensive, so I think that can just be monitored. Dr. Pyle will be on for Neurology tomorrow and I will sign off Ms. Cruz's case to him. [id number]/[facility] #: [id number] [facility]
--- NOTE | 2019-06-02 14:22 | ECHO ---
*[facility]* [place] [address] Fax #: [phone] Transthoracic Echocardiogram Patient: Eloina Cruz : 1970 Study Date: 06/02/2019 Age: 49 Gender: F HR: 71 bpm Height: 64 in /162.6 cm BSA: 2.05 m^2 Weight: 223.5 lb /101.6 kg BMI: 38.4 kg/m^2 *Carpet Winder: Megan Quiñones [facility] *Referring Physician: * Felicitas Hargrove *Reading Physician: * Joaquin Duarte MD Indications: TIA. History: Arterial dissection, involving the right common carotid artery. Risk factors: Current tobacco use. Hypertension. Diabetes mellitus. Dyslipidemia. Conclusions Summary: - Left ventricle: Systolic function is normal. The estimated ejection fraction is 55-60%. Wall motion is normal; there are no regional wall motion abnormalities. - Right ventricle: Systolic function is normal. - Atrial septum: A PFO is not demonstrated by color Doppler or agitated saline contrast. Negative bubble study. - Mitral valve: There is trace regurgitation. - Aortic valve: There is no evidence of stenosis. - Pericardium, extracardiac: There is no significant pericardial effusion. - Pulmonary arteries: Systolic pressure can not be accurately estimated. - Study data: No prior study is available for comparison. Study data: Transthoracic echocardiogram. Procedure: Transthoracic echocardiography was performed. Image quality was fair. A bubble study was performed. Complete 2D, spectral Doppler, and color flow Doppler. Location: Bedside. Patient status: Inpatient. Patient room number: 446. No prior study is available for comparison. Rhythm: Normal sinus rhythm. Findings Left ventricle: The cavity size is normal. Wall thickness is mildly increased. Systolic function is normal. The estimated ejection fraction is 55-60%. Wall motion is normal; there are no regional wall motion abnormalities. Left ventricular diastolic function parameters are normal. Right ventricle: The cavity size is normal. Systolic function is normal. Left atrium: The atrium is normal in size. Right atrium: The atrium is normal in size. Atrial septum: A PFO is not demonstrated by color Doppler or agitated saline contrast. Negative bubble study. Mitral valve: The leaflets are mildly thickened. There is no evidence of stenosis. There is trace regurgitation. Aortic valve: The valve is trileaflet. There is no evidence of stenosis. There is no significant regurgitation. Tricuspid valve: The leaflets are normal thickness. There is no evidence of stenosis. There is no significant regurgitation. Pulmonic valve: The leaflets are normal thickness. There is no evidence of stenosis. There is no significant regurgitation. Aorta: The aortic root appears normal. The aortic arch appears normal. Pericardium: There is no significant pericardial effusion. Pulmonary arteries: The main pulmonary artery is normal-sized. Systolic pressure can not be accurately estimated. Systemic veins: Inferior vena cava: The vessel is normal in size. There is (>= 50%) respiratory change in the IVC dimension. Measurements Left ventricle Value Ref Aortic valve continued Value Ref CLEMENT, LAX 4.6 cm 3.8 - 5.2 Peak v, S 1.39 m/sec ---- ESD, LAX 2.8 cm 2.2 - 3.5 VTI, S 27.4 cm ---- FS, LAX 39 % 27 - 45 Mean grad, S 4.0 mm Hg ---- PW, ED, LAX (H) 1.0 cm 0.6 - 0.9 Peak grad, S 8.0 mm Hg ---- EF 69 % 54 - 74 E', lat vinay, TDI 10.2 cm/sec >=10.0 Mitral valve Value Re f E/e', lat vinay, 10 Peak E 1.05 m/sec ---- TDI Peak A 0.58 m/sec ---- E', med vinay, TDI 10.4 cm/sec >=7.0 Decel time 174 ms -- -- E/e', med vinya, 10 Peak grad, D 4.4 mm Hg ---- TDI Peak E/A ratio 1.8 ---- E', avg, TDI 10.3 cm/sec E/e', avg, TDI 10 <=14 Pulmonic valve Value Re f Peak v, S 0.84 m/sec ---- LVOT Value Ref Peak grad, S 3.0 mm Hg ---- Peak davi, S 1.1 m/sec Mean grad, S 3 mm Hg Aortic root Value Ref Root diam 2.6 cm <4.2 Ventricular septum Value Ref IVS, ED (H) 1.0 cm 0.6 - 0.9 Ascending aorta Value Ref AAo AP diam, S 2.7 cm ---- Right ventricle Value Ref CLEMENT, LAX 2.9 cm Aortic arch Value Ref CLEMENT minor ax, A4C 2.5 cm 1.9 - 3.5 Arch diam 2.8 cm ---- mid Decending aorta Value Ref Left atrium Value Ref Kerry peak davi 0.86 m/sec ---- AP dim, ES 3.40 cm 2.70 - 3.80 Inferior vena cava Value Ref ML dim, A4C 3.8 cm Diam 1.8 cm ---- SI dim, A4C 4.8 cm Vol/bsa, ES, A/L 23 ml/m^2 16 - 34 Pulmonary veins Value Ref Peak v, S 0.59 m/sec ---- Right atrium Value Ref Peak v, D 0.5 m/sec ---- SI dim, ES 4.8 cm 3.4 - 5.3 Peak S/D ratio 1.2 ---- ML dim, ES, A4C 3.5 cm 2.6 - 4.4 A rev duration 103 ms ---- Estimated RAP 8 mm Hg Aortic valve Value Ref Vinay diam, ED 2.0 cm Legend: (L) and (H) mervin values outside specified reference range. Prepared and electronically signed by Joaquin Duarte MD 06/02/2019 14:21
[2019-06-02] MEDS: Atorvastatin* 40 MG TAB PO SCH (21:02)
[2019-06-03] MEDS: Heparin VIAL(*) 5000 UNITS/ML VIAL (FIVE THOUSAND) SUBCUT SCH ×3 (05:39→21:09)
[2019-06-03] MEDS: Acetaminophen TAB* 325 MG PO PRN ×2 (05:41→11:58)
--- NOTE | 2019-06-03 07:54 | PN ---
Subjective Date of Service: 06/03/19 Interval History: Mild headache L side, not unusual for her. No neuro sx's. Past Medical History: Unchanged from Admission Objective Active Medications: Acetaminophen (Tylenol Tab*) 650 mg PO Q4H PRN PRN Reason: PAIN-MILD/TEMP >/= 100.4 Last Admin: 06/03/19 05:41 Dose: 650 mg Al Hydrox/Mg Hydrox/Simethicone (Maalox Plus*) 30 ml PO Q6H PRN PRN Reason: INDIGESTION Aspirin (Aspirin 81 Mg Chew Tab*) 81 mg PO DAILY [facility] Last Admin: 06/02/19 08:10 Dose: 81 mg Atorvastatin Calcium (Lipitor*) 40 mg PO 2100 [facility] Last Admin: 06/02/19 21:02 Dose: 40 mg Clopidogrel Bisulfate (Plavix Tab*) 75 mg PO DAILY [facility] Last Admin: 06/02/19 08:09 Dose: 75 mg Dextrose (Dextrose 50% Vial 50 Ml*) 25 ml IV PUSH .FOR FS < 60 - SS PRN PRN Reason: FS < 60 Docusate Sodium (Colace Cap*) 100 mg PO BID [facility] Last Admin: 06/02/19 21:02 Dose: 100 mg Heparin Sodium (Porcine) (Heparin Vial(*)) 5,000 units SUBCUT Q8HR [facility] Last Admin: 06/03/19 05:39 Dose: 5,000 units Insulin Human Lispro (Humalog*) 0 units SUBCUT ACHS [facility]; Protocol Last Admin: 06/02/19 21:02 Dose: 6 units Levetiracetam (Keppra Tab*) 500 mg PO BID [facility] Last Admin: 06/02/19 21:02 Dose: 500 mg Vital Signs - 8 hr 06/03/19 03:15 Temperature 98.5 F Pulse Rate 72 Respiratory 20 Rate Blood Pressure 143/71 (mmHg) O2 Sat by Pulse 94 Oximetry Oxygen Devices in Use Now: None Appearance: Alert, sitting up in bed. In good spirits. Looks comfortable. Eyes: No Scleral Icterus Respiratory: Symmetrical Chest Expansion and Respiratory Effort, Clear to Auscultation, Clear to Percussion Cardiovascular: NL Sounds; No Murmurs; No JVD, RRR, No Edema, - Extremities: No Edema, No Clubbing, Cyanosis, - Skin: No Rash or Ulcers, No Nodules or Sclerosis, - Neurological: Alert and Oriented x 3, NL Sensation - Mild L facial weakness with smile. Good hand project portfolio analyst, foot dorsiflexion and leg elevation BL. Result Diagrams: 06/01/19 20:35 06/01/19 20:35 Assess/Plan/Problems-Billing Assessment: - Patient Problems (1) TIA (transient ischemic attack) Current Visit: Yes Status: Acute Code(s): G45.9 - TRANSIENT CEREBRAL ISCHEMIC ATTACK, UNSPECIFIED SNOMED Code(s): 700570884 Comment: CTA negative. Echo unremarkable including neg bubble study. MRI on 06/03 showed L occipital infarct, late acute to early subacute. Discussed with Dr. Pyle. PHAM 06/04, consider loop recorder as outpt. Continue clopidogrel, statin, ASA. (2) Diabetes Current Visit: No Status: Acute Code(s): E11.9 - TYPE 2 DIABETES MELLITUS WITHOUT COMPLICATIONS SNOMED Code(s): 27579780 Comment: Metformin on hold until 06/04 due to CTA late 06/01. (3) History of CVA (cerebrovascular accident) Current Visit: Yes Status: Acute Code(s): Z86.73 - PRSNL HX OF TIA (TIA), AND CEREB INFRC W/O RESID DEFICITS SNOMED Code(s): 656496204 Comment: Old R hemispheric CVA related to carotid dissection/occlusion. (4) Seizures Current Visit: No Status: Acute Code(s): R56.9 - UNSPECIFIED CONVULSIONS SNOMED Code(s): 30456537 Comment: - Cont seizure precautions - Cont home dose levetriacetam
[2019-06-03] MEDS: Insulin LISPRO* 1 UNITS UNIT SUBCUT SCH ×4 (09:11→21:09)
[2019-06-03] MEDS: levETIRAcetam TAB* 500 MG PO SCH ×2 (09:12→21:09)
[2019-06-03] MEDS: Clopidogrel TAB* 75 MG PO SCH (09:12)
[2019-06-03] MEDS: Aspirin 81 mg CHEW TAB* 81 MG TAB.CHEW PO SCH (09:12)
[2019-06-03] MEDS: Docusate CAP* 100 MG PO SCH ×2 (09:13→21:09)
[2019-06-03] MEDS: glipiZIDE TAB* 5 MG PO SCH ×2 (09:13→21:09)
--- NOTE | 2019-06-03 14:28 | PN ---
Subjective Date of Service: 06/03/19 Length of Stay: 2 Days Neurology is following for the evaluation of stroke. Interval History: Review of the medical history: Ms. 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 She was initially evaluated by then the next day by Dr. Ryder. She was not a candidate for IV tPA due to low NIHSS. Today, the patient is resting comfortably and is in no acute distress. She denied any headaches. She has slight visual loss on the right. She denied any paresthesia. She is tolerating the combination of aspirin and plavix. She has not has any recent seizures. She does not use her CPAP. Labs and imaging studies: Cholesterol: 205 LDL: [address] at the outside facility 06/01/2019: no acute intracranial disease. Head CTA 06/01/2019: negative with no intra or extra cranial stenosis. TTE w/ bubble study: No PFO. EF 55-60%. MRI brain without contrast 06/03/2019: small late acute to early subacute infarct in the left occipital lobe. No significant mass effect. There is old right MCA territory infarcts. Review of Systems: Denied CP, SOB, or palpitations. Objective Active Medications: Acetaminophen (Tylenol Tab*) 650 mg PO Q4H PRN PRN Reason: PAIN-MILD/TEMP >/= 100.4 Last Admin: 06/03/19 11:58 Dose: 650 mg Al Hydrox/Mg Hydrox/Simethicone (Maalox Plus*) 30 ml PO Q6H PRN PRN Reason: INDIGESTION Aspirin (Aspirin 81 Mg Chew Tab*) 81 mg PO DAILY [facility] Last Admin: 06/03/19 09:12 Dose: 81 mg Atorvastatin Calcium (Lipitor*) 40 mg PO 2100 [facility] Last Admin: 06/02/19 21:02 Dose: 40 mg Clopidogrel Bisulfate (Plavix Tab*) 75 mg PO DAILY [facility] Last Admin: 06/03/19 09:12 Dose: 75 mg Dextrose (Dextrose 50% Vial 50 Ml*) 25 ml IV PUSH .FOR FS < 60 - SS PRN PRN Reason: FS < 60 Docusate Sodium (Colace Cap*) 100 mg PO BID [facility] Last Admin: 06/03/19 09:13 Dose: 100 mg Glipizide (Glucotrol Tab*) 10 mg PO BID [facility] Last Admin: 06/03/19 09:13 Dose: 10 mg Heparin Sodium (Porcine) (Heparin Vial(*)) 5,000 units SUBCUT Q8HR [facility] Last Admin: 06/03/19 05:39 Dose: 5,000 units Insulin Human Lispro (Humalog*) 0 units SUBCUT ACHS [facility]; Protocol Last Admin: 06/03/19 12:00 Dose: Not Given Levetiracetam (Keppra Tab*) 500 mg PO BID [facility] Last Admin: 06/03/19 09:12 Dose: 500 mg Vital Signs 06/02/19 06/02/19 06/02/19 15:15 19:15 23:15 Temperature 98.3 F 98.1 F 97.7 F Pulse Rate 79 78 72 Respiratory 20 18 21 Rate Blood Pressure 132/62 149/66 142/66 (mmHg) O2 Sat by Pulse 95 95 96 Oximetry 06/03/19 06/03/19 03:15 07:43 Temperature 98.5 F 97.9 F Pulse Rate 72 73 Respiratory 20 16 Rate Blood Pressure 143/71 124/55 (mmHg) O2 Sat by Pulse 94 96 Oximetry Intake and Output Last 24 Hours 06/01/19 06/02/19 06/03/19 06/04/19 06:59 06:59 06:59 06:59 Intake Total 0 780 720 Output Total 0 2350 700 Balance 0 -1570 20 Weight 230 lb 3.2 oz 230 lb 3.2 oz Intake: Oral 0 780 720 Output: Urine 0 2350 700 Other: Estimated Void Small # Voids 3 1 Oxygen Devices in Use Now: None Neurology Exam: General: Well nourished, well developed obese female, and in no acute distress HEENT: Normocephelic/atraumatic, sclera anicteric, mucous membranes moist Neck: Supple Chest: Clear to auscultation bilaterally Cardiovascular: Regular rate and rhythm without murmurs, rubs, gallops Extremities: No clubbing, cyanosis, or edema Neurological Findings: Awake, alert, and oriented to person, place, and time. Speech: fluent without dysarthria, repetition intact Cranial Nerve: PERRL, EOM intact, VFF, no nystagmus, left facial droop. Facial sensation intact, hearing intact to finger rub bilaterally, palate elevates symmetrically, tongue midline, SCM and Trapezius s/s. Motor: s/s throughout, proximal and distal extremities x4 tone/bulk normal Sensation: intact to LT/PP bilaterally upper and lower extremities Deep Tendon Reflex: 2+ symmetric in the upper/lower extremities, Babinski - down going Finger to nose, rapid alternating movements intact without tremor, no dysdiadochokinesia Gait:wide based gait. No ataxia. Uses a walker as needed. Result Diagrams: 06/01/19 20:35 06/01/19 20:35 Microbiology and Other Data: Microbiology 06/01/19 20:39 Urine Culture - Final Urine No Growth (<1,000 CFU/mL) Assessment/Plan 1. Acute left AQUARIST vascular territory ischemic stroke of unknown etiology. - Embolic stroke of undetermined source is the likely cause given the normal AQUARIST vessels bilaterally. - TTE was negative for atrial appendage clot. - She does have multiple risk factors for stroke which include: HTN, DMII, dyslipidemia, and LEEANN not compliant with her CPAP. - NIHSS 0 2. History of right MCA vascular territory stroke due to carotid artery dissection in 2014 3. DMII 4. LEEANN- does not use CPAP 5. HTN 6. Dyslipidemia Recommendations: - Continue DAPT with aspirin 81 mg and Plavix 75 mg daily for 21 days. Discontinue aspirin thereafter since she was taking aspirin before this recent stroke. - She will need a PHAM and a loop recorder which can be done as an outpatient. She does not have a pet resort concierge and will need to be set up with one. - If not yet obtained, consider a hypercoagulable work-up to be done as an outpatient. - Continue atorvastatin 40 mg nightly. - Stroke education completed - No need for TRIMMER OPERATOR, PT/OT evaluation since she is minimally symptomatic with only visual complaints. - She was advised against driving. She needs to establish outpatient care with an lease out worker to establish her baseline visual field deficit. - Follow-up with neurology in 3-4 weeks. We will arrange a follow-up visit. Time spent: 40 minutes.
[2019-06-03] MEDS: Atorvastatin* 40 MG TAB PO SCH (21:09)
[2019-06-04] MEDS: Heparin VIAL(*) 5000 UNITS/ML VIAL (FIVE THOUSAND) SUBCUT SCH (04:57)
[2019-06-04] MEDS ORDERED: Flumazenil* 0.1 MG/ML 5 ML MDV ONE (08:32)
[2019-06-04] MEDS ORDERED: fentaNYL* 50 MCG/ML 2 ML VIAL (100 MCG VIAL) ONE (08:32)
[2019-06-04] MEDS ORDERED: Naloxone* 0.4 MG/ML 1 ML VIAL ONE (08:32)
[2019-06-04] MEDS ORDERED: Lidocaine 2% VISCOUS* 15 ML UDC ONE (08:32)
[2019-06-04] MEDS ORDERED: Midazolam* 1 MG/ML 5 ML VIAL (5 MG) ONE (08:32)
[2019-06-04] MEDS ORDERED: glipiZIDE TAB* 5 MG PO SCH (09:00)
[2019-06-04] MEDS: Insulin LISPRO* 1 UNITS UNIT SUBCUT SCH ×2 (09:09→11:37)
--- NOTE | 2019-06-04 10:17 | TEE ---
*[facility]* [place] [address] Fax #: [phone] Transesophageal Echocardiogram Patient: Eloina Cruz : 1970 Study Date: 06/04/2019 Age: 49 Gender: F HR: 96 bpm Height: 64 in /162.6 cm BSA: 2.22 m^2 Weight: 229.5 lb /104.3 kg BMI: 39.5 kg/m^2 *Mud Tank Operator: * Damari Calvert [facility] *Referring Physician: * Jesus Goodman *Reading Physician: * Joaquin Duarte MD Indications: CVA. History: PMH: Arterial Dissection, involving the right common carotid. Risk factors: Current tobacco use. Hypertension. Diabetes mellitus. Dyslipidemia. Conclusions Summary: - Left ventricle: Systolic function is normal. The estimated ejection fraction is 55-60%, by visual assessment. Wall motion is normal; there are no regional wall motion abnormalities. - Right ventricle: Systolic function is normal. - Atrial septum: A PFO is not demonstrated by color Doppler or agitated saline contrast. - Mitral valve: There is trace regurgitation. - Aortic valve: There is no evidence of stenosis. There is no significant regurgitation. - Tricuspid valve: There is physiologic regurgitation. - Aorta: There is minimal atherosclerotic plaque visualized in the Transverse Aorta. - Pericardium, extracardiac: There is no significant pericardial effusion. - Pulmonary arteries: Systolic pressure can not be accurately estimated. Study data: Diagnostic Transesophageal Echocardiogram Consent: The risks and benefits of the procedure, including alternatives were discussed with the patient and/or their health care pharmacy sales representative and written informed consent was obtained. Procedure: Initial setup: The patient was brought to the laboratory in the fasting state.Intravenous access was obtained. Surface ECG leads, heart rate, heart rhythm, blood pressure measurements, pulse oximetric signals, and mainstream end-tidal CO2 tracings were monitored throughout the procedure. Sedation. Moderate sedation was administered by nursing staff. History and physical as well as labs were reviewed. An oral bite block was inserted for protection of oral dentition. The patient was placed in the left lateral decubitus position. Topical anesthesia was obtained using viscous lidocaine. A transesophageal probe was inserted by the attending fire regulator. Transesophageal echocardiography was performed, image quality was good, and all standard views were attempted within the limitations of patient tolerance and safety. Multiple 2D, color flow Doppler and spectral Doppler images were obtained. The transesophageal probe was removed. A bubble study was performed. Location: Procedure room. Patient status: Inpatient. Patient room number: 446-2. Study completion: The patient tolerated the procedure well. There were no complications. Administered medications: Midazolam, 9mg. Fentanyl, 50mcg. Findings Left ventricle: The cavity size is normal. Hypertrophy is noted. Systolic function is normal. The estimated ejection fraction is 55-60%, by visual assessment. Wall motion is normal; there are no regional wall motion abnormalities. Right ventricle: The cavity size is normal. Systolic function is normal. Left atrium: The atrium is normal in size. Emptying velocity is normal. There is no evidence of a thrombus in the atrial cavity or appendage. Right atrium: The atrium is normal in size. Atrial septum: A PFO is not demonstrated by color Doppler or agitated saline contrast. Negative bubble study. Image 34. Mitral valve: The leaflets are mildly thickened. There is no evidence of stenosis. There is trace regurgitation. Aortic valve: The valve is trileaflet. There is no evidence of stenosis. There is no significant regurgitation. Tricuspid valve: The leaflets are normal thickness. There is no evidence of stenosis. There is physiologic regurgitation. Pulmonic valve: The leaflets are normal thickness. There is no evidence of stenosis. There is no significant regurgitation. Aorta: There is minimal atherosclerotic plaque visualized in the Transverse Aorta. The aortic root appears normal. The ascending aorta appears normal. Pericardium: There is no significant pericardial effusion. Pulmonary arteries: The main pulmonary artery is normal-sized. Systolic pressure can not be accurately estimated. Systemic veins: Inferior vena cava: The vessel is normal in size. Superior vena cava: The vessel is appears normal. Pulmonary veins: The Pulmonary veins appear normal. 2 of 4 visualized. Measurements Aortic valve Value Ref Ascending aorta Value Ref Genevieve diam, S 2.0 cm 1.9 - 2.7 AAo AP diam, S 3.1 cm ---- Mitral valve Value Ref Pulmonary veins Value Ref Peak E 0.69 m/sec --------- Peak v, S 0.48 m/sec ---- Peak A 0.76 m/sec --------- Peak v, D 0.34 m/sec ---- Decel time 146 ms --------- Peak S/D ratio 1.42 ---- Peak E/A ratio 0.91 --------- A rev duration 78 ms ---- Aortic root Value Ref Root diam 2.9 cm <4.3 Legend: (L) and (H) mervin values outside specified reference range. Prepared and electronically signed by Joaquin Duarte MD 06/04/2019 10:16
[2019-06-04] MEDS: Docusate CAP* 100 MG PO SCH (11:31)
[2019-06-04] MEDS: Aspirin 81 mg CHEW TAB* 81 MG TAB.CHEW PO SCH (11:33)
[2019-06-04] MEDS: Clopidogrel TAB* 75 MG PO SCH (11:34)
[2019-06-04] MEDS: levETIRAcetam TAB* 500 MG PO SCH (11:34)
[2019-06-04] MEDS ORDERED: Lidocaine 1% INJ* 10 MG/ML 30 ML SDV ONE (15:11)
--- NOTE | 2019-06-04 15:33 | PN ---
Subjective Date of Service: 06/04/19 Length of Stay: 3 Days Neurology is following for the evaluation of stroke. Interval History: She is feeling well with no symptoms today. She recovered well. She is tolerating the combination of aspirin and Plavix. She denied any major visual loss. Labs and imaging studies: Cholesterol: 205 LDL: [address] at the outside facility 06/01/2019: no acute intracranial disease. Head CTA 06/01/2019: negative with no intra or extra cranial stenosis. TTE w/ bubble study: No PFO. EF 55-60%. PHAM: no PFO or SARY thrombus. MRI brain without contrast 06/03/2019: small late acute to early subacute infarct in the left occipital lobe. No significant mass effect. There is old right MCA territory infarcts. Review of Systems: Denied CP, SOB, or palpitations. Past Medical History: Unchanged from Admission Objective Active Medications: Acetaminophen (Tylenol Tab*) 650 mg PO Q4H PRN PRN Reason: PAIN-MILD/TEMP >/= 100.4 Last Admin: 06/03/19 11:58 Dose: 650 mg Al Hydrox/Mg Hydrox/Simethicone (Maalox Plus*) 30 ml PO Q6H PRN PRN Reason: INDIGESTION Aspirin (Aspirin 81 Mg Chew Tab*) 81 mg PO DAILY [facility] Last Admin: 06/04/19 11:33 Dose: 81 mg Atorvastatin Calcium (Lipitor*) 40 mg PO 2100 [facility] Last Admin: 06/03/19 21:09 Dose: 40 mg Clopidogrel Bisulfate (Plavix Tab*) 75 mg PO DAILY [facility] Last Admin: 06/04/19 11:34 Dose: 75 mg Dextrose (Dextrose 50% Vial 50 Ml*) 25 ml IV PUSH .FOR FS < 60 - SS PRN PRN Reason: FS < 60 Docusate Sodium (Colace Cap*) 100 mg PO BID [facility] Last Admin: 06/04/19 11:31 Dose: 100 mg Glipizide (Glucotrol Tab*) 10 mg PO 0900,1700 [facility] Last Admin: 06/04/19 11:34 Dose: 10 mg Heparin Sodium (Porcine) (Heparin Vial(*)) 5,000 units SUBCUT Q8HR [facility] Last Admin: 06/04/19 04:57 Dose: 5,000 units Insulin Human Lispro (Humalog*) 0 units SUBCUT [facility]; Protocol Last Admin: 06/04/19 11:37 Dose: Not Given Levetiracetam (Keppra Tab*) 500 mg PO BID [facility] Last Admin: 06/04/19 11:34 Dose: 500 mg Vital Signs 06/03/19 06/03/19 06/03/19 15:25 19:15 23:43 Temperature 97.4 F 98.1 F 98.1 F Pulse Rate 73 77 73 Respiratory 16 18 16 Rate Blood Pressure 149/76 135/72 121/62 (mmHg) O2 Sat by Pulse 97 98 95 Oximetry 06/04/19 06/04/19 06/04/19 03:41 07:35 08:00 Temperature 97.4 F 97.0 F Pulse Rate 69 76 Respiratory 16 20 16 Rate Blood Pressure 123/52 140/63 (mmHg) O2 Sat by Pulse 95 95 Oximetry 06/04/19 06/04/19 06/04/19 08:27 09:00 09:03 Temperature Pulse Rate 78 88 86 Respiratory Rate Blood Pressure 153/79 (mmHg) O2 Sat by Pulse 93 95 94 Oximetry 06/04/19 06/04/19 06/04/19 09:05 09:15 09:20 Temperature Pulse Rate 86 79 72 Respiratory Rate Blood Pressure 168/86 154/67 123/61 (mmHg) O2 Sat by Pulse 95 89 93 Oximetry 06/04/19 06/04/19 06/04/19 09:25 09:30 09:35 Temperature Pulse Rate 98 97 97 Respiratory Rate Blood Pressure 118/57 148/69 174/92 (mmHg) O2 Sat by Pulse 96 97 98 Oximetry 06/04/19 06/04/19 06/04/19 09:40 09:45 09:50 Temperature Pulse Rate 82 74 74 Respiratory Rate Blood Pressure 120/65 108/60 113/50 (mmHg) O2 Sat by Pulse 96 97 97 Oximetry 06/04/19 06/04/19 06/04/19 10:00 10:06 10:21 Temperature Pulse Rate 81 76 71 Respiratory Rate Blood Pressure 120/72 133/70 (mmHg) O2 Sat by Pulse 91 92 92 Oximetry 06/04/19 06/04/19 10:35 11:11 Temperature 98.2 F 97.5 F Pulse Rate 80 76 Respiratory 17 19 Rate Blood Pressure 135/69 114/69 (mmHg) O2 Sat by Pulse 96 95 Oximetry Intake and Output Last 24 Hours 06/02/19 06/03/19 06/04/19 06/05/19 06:59 06:59 06:59 06:59 Intake Total 0 780 1440 170 Output Total 0 2350 1974 600 Balance 0 -1570 -535 -430 Weight 230 lb 3.2 oz 230 lb 3.2 oz Intake: IV Fluids 50 Oral 0 780 1440 120 Output: Urine 0 2349 1974 600 Other: Estimated Void Small # Voids 3 1 Oxygen Devices in Use Now: None Neurology Exam: Well nourished, well developed obese female, and in no acute distress HEENT: Normocephelic/atraumatic, sclera anicteric, mucous membranes moist Neck: Supple Extremities: No clubbing, cyanosis, or edema Neurological Findings: Awake, alert, and oriented to person, place, and time. Speech: fluent without dysarthria, repetition intact Cranial Nerve: PERRL, EOM intact, VFF, no nystagmus, left facial droop. Facial sensation intact, hearing intact to finger rub bilaterally, palate elevates symmetrically, tongue midline, SCM and Trapezius s/s. Motor: s/s throughout, proximal and distal extremities x4 tone/bulk normal Sensation: intact to LT/PP bilaterally upper and lower extremities Deep Tendon Reflex: 2+ symmetric in the upper/lower extremities, Babinski - down going Finger to nose, rapid alternating movements intact without tremor, no dysdiadochokinesia Gait:wide based gait. No ataxia. Uses a walker as needed. Result Diagrams: 06/01/19 20:35 06/01/19 20:35 Microbiology and Other Data: Microbiology 06/01/19 20:39 Urine Culture - Final Urine No Growth (<1,000 CFU/mL) Assessment/Plan 1. Acute left [employer] vascular territory ischemic stroke of unknown etiology. - Embolic stroke of undetermined source. - TTE was negative for atrial appendage clot. - She does have multiple risk factors for stroke which include: HTN, DMII, dyslipidemia, and LEEANN not compliant with her CPAP. - Need to assess for atrial fibrillation. - NIHSS 0 2. History of right MCA vascular territory stroke due to carotid artery dissection in 2014 3. DMII 4. LEEANN- does not use CPAP 5. HTN 6. Dyslipidemia Recommendations: - Continue DAPT with aspirin 81 mg and Plavix 75 mg daily for 21 days. Discontinue aspirin thereafter since she was taking aspirin before this recent stroke. - PHAM completed. Loop recorder will be placed today. - If not yet obtained, consider a hypercoagulable work-up to be done as an outpatient. - Continue atorvastatin 40 mg nightly. She was not taken atorvastatin at home prior to this new stroke. - Stroke education completed - No need for ARCHIVES TECHNICIAN, PT/OT evaluation since she is minimally symptomatic with only visual complaints. - She was advised against driving. She needs to establish outpatient care with an director geothermal operations to establish her baseline visual field deficit before she can drive. - Follow-up with neurology in 3-4 weeks. We will arrange a follow-up visit. Can be discharged today. Time spent: 15
[2019-06-04 16:42] VITALS: BP 135/70
--- NOTE | 2019-06-04 17:35 | CARD ---
EVENT MONITOR IMPLANTATION: DATE OF PROCEDURE: 06/04/19 PROCEDURE: Event monitor implantation. INDICATION: Transient ischemic attack, possible occult atrial fibrillation. The patient is a 49-year-old female who was admitted to the hospital with a TIA , this is her third potential [employer] event. The patient underwent a transesophageal echocardiogram today which was unremarkable. Event monitor implantation was recommended for occult atrial fibrillation by the neurologist. DESCRIPTION OF PROCEDURE: The patient's anterior chest was prepped and draped in the usual fashion. 1% lidocaine was used for local anesthesia. A small jackelin incision was made. The event monitor was injected subcutaneously. The patient tolerated the procedure well. There were no complications. The event monitor is a [address] LINQ, serial number [id number]. It had an R-wave sensitivity of 0.53. The patient will be seen in followup in 1 week. [id number]/[facility] #: [id number] MTDParvez
--- NOTE | 2019-06-04 23:42 | DS ---
CC: Dr. Prather at [facility]; Dr. Duarte; Dr. Ryder * DISCHARGE SUMMARY: DATE OF ADMISSION: 06/01/19 DATE OF DISCHARGE: 06/04/19 PRIMARY CARE PROVIDER: Dr. Prather at [facility]. OTHER PROVIDERS: Dr. Duarte, Dr. Ryder. ATTENDING PHYSICIAN: Dr. Zabrina Tidwell * (dictated by SINTIA Mcallister). PRIMARY DIAGNOSIS: Left posterior cerebral artery cerebrovascular accident. SECONDARY DIAGNOSES: 1. Diabetes mellitus, type 2, non-insulin dependent. 2. Dyslipidemia. 3. History of right carotid artery dissection resulting in cerebrovascular accident. 4. Seizure disorder following stroke. The patient is taking Keppra. 5. History of hypertension, on no medications. 6. Gastroesophageal reflux disease. 7. Diabetic neuropathy. STUDIES WHILE IN THE HOSPITAL: 1. Head CTA, impression: Areas of old infarct in the right frontoparietal region and right temporooccipital region which are unchanged from 08/06/18. Sphenoid and bilateral maxillary sinus disease, periodontal disease of teeth 13 through 15, otherwise negative CT of the head, 0% stenosis and no occlusion. 2. CTA neck, impression: Inhomogenous thyroid lobe suggesting small nodules. Negative CTA neck, 0% stenosis and no occlusion. 3. Transthoracic echocardiogram, summary: LV systolic function normal. Estimated EF 55% to 60%, wall motion is normal. No regional wall motion abnormalities. RV systolic function normal. PFO not demonstrated by color Doppler or agitated saline contrast, negative bubble study. Trace MR. No significant pericardial effusion. Cannot accurately estimate pulmonary artery systolic pressure. 4. Transesophageal echocardiogram, left atrium is normal in size, emptying velocity is normal. There is no evidence of a thrombus in atrial cavity or appendage. 5. MRI brain, impression: There is a small late acute to early subacute infarct in the left occipital lobe. There is no significant mass effect or associated hemorrhage. Old right MCA territory infarcts. CONSULTATIONS WHILE IN THE HOSPITAL: Neurology. Impression is that of a possible left hemispheric TIA, alternatively could have brainstem ischemic attack given dizziness. She is asymptomatic and exam is normal currently. Numerous vascular risk factors, started on Plavix in addition to aspirin. Transthoracic echo pending. MRI brain without contrast. Continue Keppra 500 b.i.d. DISCHARGE MEDICATIONS: Home medications: 1. Aspirin 81 mg p.o. daily. 2. Glipizide 10 mg p.o. b.i.d. 3. Levetiracetam 500 mg p.o. b.i.d. 4. Metformin 1000 mg p.o. b.i.d. New home medications: 1. Atorvastatin 40 mg p.o. at bedtime. 2. Clopidogrel 75 mg p.o. daily. HISTORY OF PRESENT ILLNESS/HOSPITAL COURSE: Ms. Cruz is a 49-year-old female with a past medical history of hypertension, not on treatment; diabetes; history of right carotid artery dissection in 2016 with secondary CVA and subsequent development of seizures, who presented to the ER on 06/01/19, with complaints of tingling on the right side of the body. The patient states that she experienced an episode of vertigo. She took her vertigo medication and the dizziness subsided after approximately 10 minutes. She then developed right- sided numbness. She states that this lasted approximately [address] to the ER and symptoms resolved. She denied dysarthria, dysphagia, gait abnormality, muscle weakness, vision changes, difficulty with speech. Again, her vertigo was transient for approximately 10 minutes and right-sided numbness lasted approximately 30 minutes and then the patient returned back to baseline. She was admitted to the hospital for further CVA versus TIA workup. Her CT of the head was without gross abnormality. Neurology was consulted and recommended MRI of the head, start Plavix, transthoracic echo-cardiogram. These tests were performed. Transthoracic echocardiogram was within normal limits. Brain MRI revealed small late acute to early subacute infarct of left occipital lobe as well as old right MCA territory infarcts. Due to location, it is likely that this was an embolic stroke. TTE was negative. PHAM was then performed and showed no left atrial clot. No arrhythmia was captured on telemetry throughout her stay. The patient will be continued on dual antiplatelet therapy, aspirin, and Plavix for 21 days and then continue Plavix only. A loop recorder has been inserted prior to discharge and she will follow up with Dr. Duarte. It is also recommended that the patient receive hypercoagulable workup. She does mention that her sister of a PE 6 months ago. She is unsure if this was provoked or not but states that her sister was very sedentary. The patient has been advised not to drive. She should establish with an nuclear officer in order to establish baseline visual acuity. She will also follow up with Neurology in 3 to 4 weeks. At the time of discharge, the patient has no complaints. She denies dizziness, lightheadedness, right-sided numbness, weakness, unsteady gait. She denies headache, vision changes, difficulty swallowing, difficulty with speech, chest pain, cough, fever, chills, shortness of breath, abdominal pain, nausea, vomiting, diarrhea, constipation, myalgias, arthralgias. Ms. Cruz is stable for discharge. REVIEW OF SYSTEMS: A 14-point review of systems has been performed and all the pertinent positives and negatives are in the HPI, all other systems are negative. PHYSICAL EXAMINATION: Vital Signs: Temperature 98.2 temporal, heart rate 86, respiratory rate 19, oxygen saturation 97% on room air, blood pressure 135/70. General: Ms. Cruz is a well-developed, well-nourished, obese middle age white woman who is sitting up in bed. She appears to be in no acute distress. She is pleasant, cooperative, and appropriate. HEENT: Visual ogden are grossly intact. PERRL. EOMI. Nonicteric sclerae. Hearing grossly intact. Oral mucous membranes are moist. There are no lesions. Pharynx is clear. The tongue is at midline. The palate elevates symmetrically. Cardiovascular: Regular rate and rhythm with S1, S2 present without murmurs, rubs, clicks, or gallops. Telemetry reveals normal sinus rhythm. There is no JVD. There is no peripheral edema. Pulmonary: Symmetrical chest expansion without use of accessory muscles. Lungs: Clear to auscultation bilaterally without rhonchi, wheezes, or rubs. No digital clubbing or cyanosis. Abdomen: Obese. Bowel sounds in all quadrants. Soft, nontender to palpation. Neuro: The patient is awake. She is alert and oriented x3 with cranial nerves grossly intact. She is able to move all of her extremities with 5/5 strength bilaterally in upper and lower extremities. DISCHARGE PLAN: Ms. Cruz will be discharged to home. Condition: Good. Diet : Heart-healthy, ADA. Activity: As tolerated. MEDICATIONS: 1. Continue aspirin 81 mg p.o. daily x21 days. 2. Continue Plavix 75 mg p.o. daily. 3. Continue atorvastatin 40 mg p.o. at bedtime. 4. Continue CPAP machine for sleep apnea. EDUCATION: 1. Follow up with primary care provider in 4 to 7 days. Discussed recent hospitalization, new medications, hypercoagulable workup. 2. Follow up with Neurology in 3 to 4 weeks. Office will call with appointment date and time. 3. Follow up with Dr. Duarte, Cardiology within 1 week. Office will call with appointment date and time. 4. Follow up with ophthalmology outpatient. 5. Return to the ER or the nearest hospital if she experienced any worsening or return of symptoms, chest pain or discomfort, dizziness, lightheadedness, loss of consciousness, high fevers, chills, night sweats, vision changes, numbness, tingling, weakness, or any other worrisome signs or symptoms. This is a summarized report of a complex medical history and hospital stay. For further details, please see the entire medical record. TIME SPENT: Approximately 40 minutes was spent on this discharge, greater than half of that time was spent [id number] with the patient discussing discharge plans and instructions. SINTIA ORTEGA [id number]/[facility] #: [id number] SANAZ
== END 2019-06-04 17:40 | disposition home or self-care (01) | DRG 45 ==
LOC: ED 20:15 → MEDTELE 22:10 → OBSVTOIN 06-03 16:00
PROVIDERS: ADMIT Internal Medicine; ATTEND Hospitalist
PROC: 0JH602Z Insertion of Monitoring Device into Chest Subcutaneous Tissue and Fascia, Open Approach (ICD-10-PCS; 2019-06-04)
PROC: 4A1234Z Monitoring of Cardiac Electrical Activity, Percutaneous Approach (ICD-10-PCS; 2019-06-04)
PROC: B24BZZ4 Ultrasonography of Heart with Aorta, Transesophageal (ICD-10-PCS; principal; 2019-06-04 09:45)
DX: I63.432 Cerebral infarction due to embolism of left posterior cerebral artery (principal); I10 Essential (primary) hypertension; E11.40 Type 2 diabetes mellitus with diabetic neuropathy, unspecified; E78.5 Hyperlipidemia, unspecified; G40.909 Epilepsy, unspecified, not intractable, without status epilepticus; E66.01 Morbid (severe) obesity due to excess calories; K21.9 Gastro-esophageal reflux disease without esophagitis; R29.700 NIHSS score 0; G47.33 Obstructive sleep apnea (adult) (pediatric); E78.00 Pure hypercholesterolemia, unspecified; R40.2362 Coma scale, best motor response, obeys commands, at arrival to emergency department; R40.2142 Coma scale, eyes open, spontaneous, at arrival to emergency department; R40.2252 Coma scale, best verbal response, oriented, at arrival to emergency department; R20.0 Anesthesia of skin; R42 Dizziness and giddiness; R51 Headache; Z86.73 Personal history of transient ischemic attack (TIA), and cerebral infarction without residual deficits; Z87.891 Personal history of nicotine dependence; Z68.39 Body mass index [BMI] 39.0-39.9, adult; Z79.82 Long term (current) use of aspirin; Z79.84 Long term (current) use of oral hypoglycemic drugs
CPT/HCPCS: 33285; 36415; 70496; 70498; 70551; 80053; 80061; 81003; 81015; 83036; 83605; 84484; 85025; 85610; 87086; 93005; 93306; 93312; 93325; 99156; 99157; 99284; A9270-GY; C1764; G0378; J1644; J2250; J2310; J3010; Q9967